=== PATIENT | male | born 1975 | race Caucasian/White ===

== ENCOUNTER → 2020-06-09 16:36 | Outpatient (CLI) | payer BC, SELFPAY ==
--- NOTE | ~2020-06-09 | XR_ITS ---
EXAMINATION: XR chest 2V DATE: 06/09/2020 16:49 INDICATION: Productive cough and weakness TECHNIQUE: PA and lateral views of the chest were obtained. COMPARISON: None FINDINGS: Indeterminate pleural-based opacity projecting along the lateral left lower lung zone. Lungs are othe rwise clear. No other airspace opacities, pulmonary edema, pleural effusion or pneumothorax. The card iomediastinal silhouette is normal. Visualized bones and soft tissues are unremarkable. IMPRESSION: 1. Indeterminate opacity suggesting pleural-based or subpleural mass at the lateral left lower lung z one. Consider chest CT for further evaluation. Reviewed, dictated and finalized at location A. IMPRESSION: 1. Indeterminate opacity suggesting pleural-based or subpleural mass at the lat eral left lower lung zone. Consider chest CT for further evaluation.
== END ==
PROVIDERS: PCP Clinical Nurse Specialist; Visit Provider Clinical Nurse Specialist
DX: R91.8 Other nonspecific abnormal finding of lung field (principal); R05 Cough
CPT/HCPCS: 71046

== ENCOUNTER 2020-06-11 16:51 | Outpatient (CLI) | payer BC, SELFPAY ==
--- NOTE | ~2020-06-11 | CT_ITS ---
EXAMINATION: CT chest wo con DATE: 06/11/2020 17:55 INDICATION: Lung mass seen on recent chest x-ray. TECHNIQUE: Computed tomography (CT) of the chest was performed without intravenous contrast. The dose -length product was 384.40 mGy-cm. Automated exposure control and iterative reconstruction technique were employed. COMPARISON: Chest x-ray dated 06/09/2020 FINDINGS: There is focal extrapleural fat in the left lower thorax accounting for density seen on margot st x-ray. Heart size normal. No significant pleural or pericardial effusion. No thoracic lymphadenopa thy. There are nonenlarged mediastinal lymph nodes, likely reactive. There is atherosclerosis of the coronary arteries. The upper abdomen is unremarkable. There are small calcified granulomas in the lef t lower lobe, consistent with chronic granulomatous disease.. No acute osseous abnormality. IMPRESSION: 1. No acute cardiopulmonary disease. Focal extrapleural fat accounts for nodular density seen on rece nt chest x-ray. Reviewed, dictated and finalized at location A. IMPRESSION: 1. No acute cardiopulmonary disease. Focal extrapleural fat accounts for nodula r density seen on recent chest x-ray.
== END 2020-06-11 16:52 | disposition home or self-care (01) ==
PROVIDERS: PCP Internal Medicine; Visit Provider Clinical Nurse Specialist
DX: R05 Cough (principal); R93.89 Abnormal findings on diagnostic imaging of other specified body structures
CPT/HCPCS: 71250

== ENCOUNTER 2021-12-05 00:45 | Day surgery (SDC) | payer BC, SELFPAY ==
[2021-11-24 12:06] VITALS: BMI 30.7
--- NOTE | 2021-12-04 16:30 | WPDGICN ---
Assessment and Plan Assessment and plan (1) Screening for colon cancer: Code(s): Z12.11 - Encounter for screening for malignant neoplasm of colon Status: Acute Assessment and Plan: Colonoscopy with possible biopsy or polypectomy or cautery or injection of substances. (2) Rheumatoid arthritis: Code(s): M06.9 - Rheumatoid arthritis, unspecified Status: Acute GI Consult Note Consult date/time: 12/04/21 16:30 HPI: Crow Herman Jr. is a 45 year old male referred because he is at recommended age for colon cancer screening. He also suffers from seasonal aergies and RA--on MTX and hydroxychloroquine. Review of Systems Review of Systems: All systems reviewed & are unremarkable except as noted in HPI and below PMFSH Past Medical History Medical History Need for influenza vaccination Rheumatoid arthritis Surgical History Surgical History History of rhinoplasty 1994 Family History Family History Father Hypertension Status post double vessel coronary artery bypass Dementia Mother Rheumatoid arthritis Parkinsons disease Sibling Hypothyroidism Systemic lupus erythematosus Social History Social History Smoking status: Current some day smoker Tobacco type: pipe and cigars Alcohol intake: current Drinks per week: 7 Substance use: current Substance use type: marijuana Other substance usage details: edibles Living arrangements: with family Spiritual care concerns: No Meds Home Medications and Allergies Home Medications Medication Instructions Recorded Confirmed Type cholecalciferol (vitamin D3) 25 25 mcg PO DAILY 04/28/20 11/24/21 History mcg (1,000 unit) capsule fluticasone propionate 50 2 spray NASAL DAILY 04/28/20 11/24/21 History mcg/actuation nasal spray,suspension folic acid 1 mg tablet 1 mg PO DAILY 04/28/20 11/24/21 History hydroxychloroquine 200 mg tablet 200 mg PO DAILY 04/28/20 11/24/21 History methotrexate sodium 15 mg tablet 15 mg PO WEEKLY 04/28/20 11/24/21 History multivitamin with minerals 1 tablet PO DAILY 04/28/20 11/24/21 History montelukast 10 mg tablet 10 mg PO DAILY #90 tablet 02/15/21 11/24/21 Rx albuterol sulfate 90 mcg/actuation 2 puff INHALATION Q4-6H PRN #8.5 g 05/04/21 11/24/21 Rx aerosol inhaler mupirocin 1 applic TOPICAL BID PRN 11/24/21 11/24/21 History Allergies Allergy/AdvReac Type Severity Reaction Status Date / Time latex Allergy Rash Verified 12/05/21 10:18 Exam Resp: Auscultation: clear to auscultation bilaterally Cardio: Rate: regular rate Rhythm: regular rhythm GI: GI Palp: Yes Soft to palpation and No Tenderness to palpation present (GI)
[2021-12-05 10:20] VITALS: BP 96/76; PULSE 95; RESP 15; TEMP 36.2; O2SAT 98
[2021-12-05] MEDS: LACTATED RINGERS 1,000 ML 150 ML IV CONT (10:30)
--- NOTE | 2021-12-05 10:54 | WPDANESEPPF ---
Anes - Initial Pre Proc Eval Procedure: Operation Date: 12/05/21 11:30 Proposed Procedures p Screening Colonoscopy - Tanner Angelo MD Date/Time: 12/05/21 10:54 Surgeon: Tanner Angelo MD Pre Op Diagnosis: neoplasm screening Patient Data Age: 45 Gender: M Height: 1.8 m Weight: 99.4 kg Last Vital Signs Temp 97.1 F L 12/05/21 10:20 Pulse 95 12/05/21 10:20 Resp 15 12/05/21 10:20 BP 96/76 L 12/05/21 10:20 Pulse Ox 98 12/05/21 10:20 Allergies Allergy/AdvReac Type Severity Reaction Status Date / Time latex Allergy Rash Verified 12/05/21 10:18 Home Medications Medication Instructions Recorded Confirmed Type cholecalciferol (vitamin D3) 25 25 mcg PO DAILY 04/28/20 11/24/21 History mcg (1,000 unit) capsule fluticasone propionate 50 2 spray NASAL DAILY 04/28/20 11/24/21 History mcg/actuation nasal spray,suspension folic acid 1 mg tablet 1 mg PO DAILY 04/28/20 11/24/21 History hydroxychloroquine 200 mg tablet 200 mg PO DAILY 04/28/20 11/24/21 History methotrexate sodium 15 mg tablet 15 mg PO WEEKLY 04/28/20 11/24/21 History multivitamin with minerals 1 tablet PO DAILY 04/28/20 11/24/21 History montelukast 10 mg tablet 10 mg PO DAILY #90 tablet 02/15/21 11/24/21 Rx albuterol sulfate 90 mcg/actuation 2 puff INHALATION Q4-6H PRN #8.5 g 05/04/21 11/24/21 Rx aerosol inhaler mupirocin 1 applic TOPICAL BID PRN 11/24/21 11/24/21 History Patient hx anesthesia problems: none Family hx anesthesia problems: none Results Review: All pre-operative results and documents have been reviewed as part of the pre-operative evaluation. [facility] Past Medical History Medical History Need for influenza vaccination Rheumatoid arthritis Surgical History Surgical History History of rhinoplasty 1995 Family History Family History Father Hypertension Status post double vessel coronary artery bypass Dementia Mother Rheumatoid arthritis Parkinsons disease Sibling Hypothyroidism Systemic lupus erythematosus Social History Social History Smoking status: Current some day smoker Tobacco type: pipe and cigars Alcohol intake: current Drinks per week: 7 Substance use: current Substance use type: marijuana Other substance usage details: edibles Living arrangements: with family Spiritual care concerns: No Anes - Eval Final PreProcedure Day of Procedure 12/05/21 10:54 Patient weight: obese Heart: regular rate and rhythm Lungs: clear to auscultation Airway: Mallampati scale class III Neurological: alert and oriented Last oral intake: >/= 8 hours ASA classification: II Emergent: no Anesthetic plan: proceed Anesthesia type and monitoring: general GIVS and standard monitoring Results Review: All pre-operative results and documents have been reviewed as part of the pre-operative evaluation. Informed Consent: The patient's anesthetic plan and its attendant risks and benefits were discussed with the patient/family/POA. Questions were solicited and answers provided to the satisfaction of the patient/family/POA.
[2021-12-05 11:37] VITALS: BP 122/81; PULSE 75; RESP 17; O2SAT 98
[2021-12-05 11:47] VITALS: BP 138/84; PULSE 74; RESP 23; O2SAT 100
[2021-12-05 11:57] VITALS: BP 133/89; PULSE 68; RESP 20; O2SAT 100
== END 2021-12-05 12:07 | disposition home or self-care (01) ==
PROVIDERS: PCP Internal Medicine; Visit Provider Internal Medicine Gastroenterology
PROC: 0DJD8ZZ Inspection of Lower Intestinal Tract, Via Natural or Artificial Opening Endoscopic (ICD-10-PCS; CPT 45378; principal; 2021-12-05 11:30)
DX: Z12.11 Encounter for screening for malignant neoplasm of colon (principal); Z79.51 Long term (current) use of inhaled steroids; M06.9 Rheumatoid arthritis, unspecified; F17.290 Nicotine dependence, other tobacco product, uncomplicated; F12.90 Cannabis use, unspecified, uncomplicated; E66.9 Obesity, unspecified; Z68.30 Body mass index [BMI] 30.0-30.9, adult
CPT/HCPCS: 45378; J2704; J7120

== ENCOUNTER 2021-12-30 10:29 | Emergency (ER) | payer BC, SELFPAY ==
[2021-12-30 11:26] VITALS: BP 145/85; PULSE 94; RESP 18; TEMP 37.2; O2SAT 99
--- NOTE | 2021-12-30 11:51 | ED.URI ---
HPI - URI/Sore Throat General Chief Complaint: Upper Respiratory Infection Stated Complaint: fever,bodyache,chills Time Seen by Provider: 12/30/21 11:51 Source: patient, family, RN notes reviewed and old records reviewed Mode of arrival: ambulatory Limitations: no limitations History of Present Illness HPI Narrative: 46-year-old male presents to the [facility] with complaints of fever, body aches and chills for 4 days. Patient states that symptoms started on Sunday. Had body aches and reports a fever of 100.7 on Sunday. On Sunday he also took a home COVID test which was negative. Has had intermittent cough last night states he had shortness of breath last night. States that what bothers him most is the chills and he is just cold to his bones. NyQuil. Uses Flonase daily along with the Singulair. Related Data Home Medications Medication Instructions Recorded Confirmed fluticasone propionate 50 2 spray NASAL DAILY 04/28/20 12/30/21 mcg/actuation nasal spray,suspension folic acid 1 mg tablet 1 mg PO DAILY 04/28/20 12/30/21 hydroxychloroquine 200 mg tablet 200 mg PO DAILY 04/28/20 12/30/21 methotrexate sodium 15 mg tablet 15 mg PO WEEKLY 04/28/20 12/30/21 Allergies Allergy/AdvReac Type Severity Reaction Status Date / Time latex Allergy Rash Verified 12/05/21 10:18 tree nut Allergy Unknown Verified 12/30/21 11:41 Review of Systems Review of Systems: All systems reviewed & are unremarkable except as noted in HPI and below Constitutional: Constitutional: Reports as per HPI, Reports chills, Reports fatigue, Reports fever(s) and Denies headache(s) Eyes: Eyes: Reports no additional eye complaints ENT: Reports as per HPI, Denies vertigo, Denies dizziness, Denies headache(s), Denies nasal congestion and Denies sore throat Cardiovascular: Cardiovascular: Reports no additional cardiovascular complaints, Denies chest pain, Denies syncope, Denies rapid heart rate and Denies dyspnea Respiratory: Respiratory: Reports as per HPI, Reports cough, Denies dyspnea and Denies wheezing Gastrointestinal: Gastrointestinal: Reports no additional gastrointestinal complaints, Denies abdominal pain, Denies diarrhea, Denies nausea and Denies vomiting Musculoskeletal: Musculoskeletal: Reports as per HPI, Reports myalgias and Denies numbness Integumentary/Breasts: Skin/Breast: Reports system reviewed and no additional complaints, except as docu Neurologic: Reports system reviewed and no additional complaints, except as documented, Denies vertigo, Denies dizziness, Denies syncope, Denies headache(s), Denies focal weakness and Denies numbness Psychiatric: Psychiatric: Reports no additional psychiatric complaints Allergic/Immunologic: Allergic/Immunologic: Reports no additional allergic/immunologic complaints and Denies wheezing PMFSH Past Medical History Medical History Need for influenza vaccination Rheumatoid arthritis Surgical History Surgical History History of rhinoplasty 1994 Family History Family History Father Hypertension Status post double vessel coronary artery bypass Dementia Mother Rheumatoid arthritis Parkinsons disease Sibling Hypothyroidism Systemic lupus erythematosus Social History Social History Smoking status: Current some day smoker Tobacco type: pipe and cigars Alcohol intake: current Drinks per week: 7 Substance use: current Substance use type: marijuana Other substance usage details: edibles Spiritual care concerns: No Comments At the time of my signature, I reviewed and agree with the nursing past medical, surgical, social, and family history. There is no relevant family history pertinent to the patient complaint. Exam Const: General: cooperative, hea
[2021-12-31 08:59] LABS: SARS-CoV-2 RNA PCR Negative
== END 2021-12-30 12:11 | disposition home or self-care (01) ==
PROVIDERS: Emergency Provider Nurse Practitioner; PCP Internal Medicine
DX: B34.9 Viral infection, unspecified (principal); Z20.822 Contact with and (suspected) exposure to COVID-19; F17.290 Nicotine dependence, other tobacco product, uncomplicated; M06.9 Rheumatoid arthritis, unspecified
CPT/HCPCS: 87804; 99213; C9803; G0463; U0003; U0005

== ENCOUNTER 2022-07-01 14:34 | Emergency (ER) | payer BC, SELFPAY ==
[2022-07-01 14:53] VITALS: BP 113/77; PULSE 81; RESP 18; TEMP 36.9; O2SAT 98
--- NOTE | 2022-07-01 14:56 | ED.GENADULT ---
HPI - General Adult General Chief complaint: Wound/Laceration Stated complaint: laceration History of Present Illness HPI narrative: 46 y/o male. PMHx Seasonal allergies, RA. Presents to [facility] clinic today with acute complaints of LT pointer finger tip laceration. Client reports to have been trimming hedges, RT hand dominant, and window trimmer accidentally made contact w/left finger. -Incident had occurred immediately [employer]. -No bony pain or injury. -Bleeding currently controlled. -Not on anticoagulants. -Non-diabetic. -No loss of upper extremity sensation or control. He is without additional acute c/o upon PE. Related Data Home Medications Medication Instructions Recorded Confirmed fluticasone propionate 50 2 spray intranasal DAILY 04/28/20 07/01/22 mcg/actuation nasal spray,suspension (Flonase Allergy Relief) folic acid 1 mg tablet 1 mg PO DAILY 04/28/20 07/01/22 hydroxychloroquine 200 mg tablet 200 mg PO DAILY 04/28/20 07/01/22 methotrexate sodium 15 mg tablet 15 mg PO WEEKLY 04/28/20 07/01/22 (Trexall) Allergies Allergy/AdvReac Type Severity Reaction Status Date / Time latex Allergy Rash Verified 07/01/22 15:01 tree nut Allergy Unknown Verified 07/01/22 15:01 Review of Systems Review of Systems: SKIN: Laceration LT finger. REMAINDER OF ROS: NEGATIVE. PMFSH Past Medical History Medical History Need for influenza vaccination Rheumatoid arthritis Surgical History Surgical History History of rhinoplasty 1994 Family History Family History Father Hypertension Status post double vessel coronary artery bypass Dementia Mother Rheumatoid arthritis Parkinsons disease Sibling Hypothyroidism Systemic lupus erythematosus Social History Social History Smoking status: Current some day smoker Tobacco type: pipe and cigars Alcohol intake: current Drinks per week: 7 Substance use: current Substance use type: marijuana Other substance usage details: edibles Spiritual care concerns: No Exam Narrative: GENERAL: This is a well-nourished, well-developed adult, in no apparent distress. HEAD: normocephalic. NECK: Neck supple. CARDIOVASCULAR: Regular rate and rhythm. Strong radial pulse LUE, cap refill brisk, SPO2 99% on affected digit. RESPIRATORY: Clear to auscultation. GASTROINTESTINAL: Abdomen soft. SKIN: With 2 cm soft tissue and linear laceration overlying distal fat pad of left pointer digit. Bleeding is controlled. No visualized FB. Remainder of integumentary exam is negative. NEURO: Alert, and age appropriate. Good sensation and discrimination LUE, all sites. No focal neurologic deficits. EXTREMITIES: Client exhibits full flexion and extension of left pointer finger, no restriction. No bony tenderness or deformity. ROM is fully preserved. Course Course Level of Care: Express Care Visit Vital Signs Vital signs: Vital Signs Temperature 36.9 C 07/01/22 14:53 Pulse Rate 81 07/01/22 14:53 Respiratory Rate 18 07/01/22 14:53 Blood Pressure 113/77 07/01/22 14:53 Pulse Oximetry 98 07/01/22 14:53 Oxygen Delivery Room Air 07/01/22 14:53 Temperature 36.9 C 07/01/22 14:53 Pulse Rate 81 07/01/22 14:53 Respiratory Rate 18 07/01/22 14:53 Blood Pressure 113/77 07/01/22 14:53 Pulse Oximetry 98 07/01/22 14:53 Oxygen Delivery Room Air 07/01/22 14:53 Procedures Laceration Laceration 1: Date: 07/01/22 Time: 15:01 Site: upper extremity (LT pointer finger . ) Side (If applicable): left Size (cm): 2 Description: linear Depth: simple, single layer Local Anesthetic: lidocaine 1% Amount of anesthesia used (mL): 0.5 Pre-r
[2022-07-01] MEDS: TETANUS,DIPHTHERIA,AC PERTUSSIS ADULT (0.5 ML) BOOSTRIX IM (15:48)
== END 2022-07-01 15:52 | disposition home or self-care (01) ==
PROVIDERS: Emergency Provider Nurse Practitioner Adult Health; PCP Internal Medicine
DX: S61.211A Laceration without foreign body of left index finger without damage to nail, initial encounter (principal); W29.3XXA Contact with powered garden and outdoor hand tools and machinery, initial encounter; Z23 Encounter for immunization; F17.290 Nicotine dependence, other tobacco product, uncomplicated; M06.9 Rheumatoid arthritis, unspecified
CPT/HCPCS: 12001; 90471; 90715; 99212; G0463

== ENCOUNTER 2023-02-21 11:01 | Outpatient (CLI) | payer BC, SELFPAY ==
[2023-02-21 11:22] LABS: Basophils Absolute Auto 0.1 K/mm3 (0.0-0.1); Eosinophils Absolute Auto 0.1 K/mm3 (0-0.3); Eosinophils Percent Auto 1.6 % (0-4.4); Hematocrit 38.1 % (42.0-52.0); Hemoglobin 12.6 g/dL (14.0-18.0); Lymphocytes Absolute Auto 0.93 K/mm3 (0.9-3.2); Lymphocytes Percent Auto 18.9 % (18.3-44.2); Mean Corpuscular HGB Conc 33.1 g/dl (32-36); Mean Corpuscular Hemoglobin 30.9 pg (26-34); Mean Corpuscular Volume 93.4 fl (80-100); Mean Platelet Volume 9.5 fl (7.4-10.4); Neutrophils Absolute Auto 2.9 K/mm3 (1.3-6.7); Neutrophils Percent Auto 58.5 % (45.5-73.1); Platelet Count Result 253 k/mm3 (150-375); Red Blood Count 4.08 M/mm3 (4.6-6.20); Red Cell Distribution Width 14.6 % (11.5-14.5); White Blood Count 4.9 K/mm3 (4.5-10.0)
[2023-02-21 11:27] LABS: Uric Acid 8.4 mg/dL (3.5-8.5)
[2023-02-21 12:43] LABS: Erythrocyte Sedimentation Rate 25 mm/hr (0-20)
== END 2023-02-21 11:02 | disposition home or self-care (01) ==
PROVIDERS: PCP Internal Medicine; Visit Provider Nurse Practitioner
DX: M25.571 Pain in right ankle and joints of right foot (principal)
CPT/HCPCS: 36415; 73610; 84550; 85025; 85652

== ENCOUNTER 2023-12-10 14:18 | Outpatient (CLI) | payer OTHER, SELFPAY ==
[2023-12-10 14:42] LABS: Eosinophils Absolute Auto 0.1 K/mm3 (0-0.3); Eosinophils Percent Auto 3.4 % (0-4.4); Hematocrit 33.9 % (42.0-52.0); Hemoglobin 11.6 g/dL (14.0-18.0); Immature Granulocyte Absolute 0.01 K/mm3 (0.00-0.031); Immature Granulocyte Percent A 0.2 % (0-0.5); Immature Reticulocyte Fraction 11.9 % (3.0-15.9); Lymphocytes Absolute Auto 0.87 K/mm3 (0.9-3.2); Mean Corpuscular HGB Conc 34.2 g/dl (32-36); Mean Corpuscular Hemoglobin 31.9 pg (26-34); Mean Corpuscular Volume 93.1 fl (80-100); Mean Platelet Volume 9.1 fl (7.4-10.4); Monocytes Absolute Auto 0.5 K/mm3 (0.1-0.6); Monocytes Percent Auto 12.8 % (2.6-8.5); Neutrophils Absolute Auto 2.6 K/mm3 (1.3-6.7); Neutrophils Percent Auto 61.6 % (45.5-73.1); Platelet Count Result 214 k/mm3 (150-375); Red Blood Count 3.64 M/mm3 (4.6-6.20); Reticulocyte Hemoglobin Conten 34.3 pg (28.2-35.7); Reticulocyte Percent 1.59 % (0.7-4.3); Reticulocytes Absolute 0.06 M/mm3 (0.02-0.1); White Blood Count 4.1 K/mm3 (4.5-10.0)
[2023-12-10 17:36] LABS: Iron 60 ug/dL (49-181)
[2023-12-10 17:43] LABS: Alanine Aminotransferase 24 U/L (6-50); Albumin Level 4.2 g/dL (3.5-5.1); Alkaline Phosphatase 71 U/L (38-126); Anion Gap 8 mmol/L (8-16); Aspartate Amino Transferase 37 U/L (17-59); Bilirubin,Total 0.4 mg/dL (0.2-1.3); Blood Urea Nitrogen 11 mg/dL (9-20); Calcium 9.4 mg/dL (8.4-10.2); Carbon Dioxide 27 mmol/L (22-30); Chloride 103 mmol/L (98-107); Estimated Glomerular Filt Rate > 60; Glucose 102 mg/dL (65-110); Lactate Dehydrogenase 240 U/L (120-246); Sodium 138 mmol/L (137-145)
[2023-12-10 17:46] LABS: Percent Iron Saturation 21 % (20-50)
[2023-12-12 16:35] LABS: Methylmalonic Acid 139 nmol/L (87-318)
[2023-12-13 19:59] LABS: Haptoglobin 157 mg/dL (43-212)
[2023-12-17 12:42] LABS: Soluble Transferrin Receptor 1.07 mg/L (0.76-1.76)
== END 2023-12-10 14:19 | disposition home or self-care (01) ==
LOC: ANHLAB 14:24
PROVIDERS: Nurse Practitioner Family; PCP Internal Medicine; Visit Provider Internal Medicine Hematology & Oncology
DX: D64.9 Anemia, unspecified (principal)
CPT/HCPCS: 36415; 80053; 82728; 83010; 83540; 83550; 83615; 83921; 84238; 85025; 85046

== ENCOUNTER 2024-05-20 08:39 | Outpatient (CLI) | payer OTHER, SELFPAY ==
[2024-05-20 08:54] LABS: Basophils Absolute Auto 0.1 K/mm3 (0.0-0.1); Eosinophils Absolute Auto 0.1 K/mm3 (0-0.3); Eosinophils Percent Auto 2.5 % (0-4.4); Hematocrit 37.2 % (42.0-52.0); Hemoglobin 12.4 g/dL (14.0-18.0); Immature Granulocyte Absolute 0.02 K/mm3 (0.00-0.031); Immature Granulocyte Percent A 0.4 % (0-0.5); Lymphocytes Absolute Auto 0.75 K/mm3 (0.9-3.2); Lymphocytes Percent Auto 14.6 % (18.3-44.2); Mean Corpuscular HGB Conc 33.3 g/dl (32-36); Mean Corpuscular Hemoglobin 31.4 pg (26-34); Mean Corpuscular Volume 94.2 fl (80-100); Monocytes Absolute Auto 0.6 K/mm3 (0.1-0.6); Monocytes Percent Auto 12.3 % (2.6-8.5); Neutrophils Absolute Auto 3.5 K/mm3 (1.3-6.7); Neutrophils Percent Auto 69.2 % (45.5-73.1); Platelet Count Result 242 k/mm3 (150-375); Red Blood Count 3.95 M/mm3 (4.6-6.20); Red Cell Distribution Width 13.6 % (11.5-14.5); White Blood Count 5.1 K/mm3 (4.5-10.0)
[2024-05-20 11:41] LABS: Folic Acid > 20.0 ng/mL (2.76->20)
[2024-05-20 12:54] LABS: Iron 96 ug/dL (49-181)
[2024-05-20 13:03] LABS: Percent Iron Saturation 31 % (20-50)
== END 2024-05-20 08:40 | disposition home or self-care (01) ==
LOC: ANHLAB 08:41
PROVIDERS: Nurse Practitioner Family; PCP Internal Medicine; Visit Provider Internal Medicine Hematology & Oncology
DX: D64.9 Anemia, unspecified (principal)
CPT/HCPCS: 36415; 82607; 82728; 82746; 83540; 83550; 85025

== ENCOUNTER 2024-11-21 13:38 | Outpatient (CLI) | payer OTHER, SELFPAY ==
--- OUTSIDE RECORDS SUMMARY | 2024-11-21 13:41 | XMS_ITS | Referral Summary ---
Author Organization [facility] [employer] Address [address] [place] [address] Care Team Providers Care It Telecom Technician Name Role Phone Anthony Mora MD Primary Care Provider [phone] Nell Quiroz MD Unavailable Unavailable Source Comments [facility] [employer],non-owned Affiliates and Associated Physician Practices is amultiple site organization consisting of ambulatory clinics and hospital sitesin [place], [place], [place] and [place]. This disclosure is being madepursuant to the Care Everywhere program and may not contain all information available regarding this patient. Last updated 18.[facility] [employer] Allergies Active Allergy Reactions Criticality Noted Date Comments Latex 09/18/2009 Medications * Be aware that medications may not be up to date on this document. Alwaysverify current medications with the patient. Medication Sig Dispensed Refills Start Date End Date Status methotrexate (RHEUMATREX) 2.5 MG tablet Take 2.5 mg by mouth. 4 tabs weekly Active hydroxychloroquine (PLAQUENIL) 200 MG tabletIndications: Rheumatoid arthritis(714.0) (HCC) Take 1 Tab by mouth once daily. 90 Tab 3 12/01/2011 Active folic acid (FOLVITE) 1 MG tabletIndications: Bronchitis, acute Take 1 mg by mouth 2 times daily. Active albuterol HFA (PROAIR HFA) 108 (90 BASE) MCG/ACT inhalerIndications :Asthma (HCC) Inhale 2 Puffs by mouth every 6 hours as needed. 3 Inhaler 1 12/10/2014 Active predniSONE (DELTASONE) 10 MG tabletIndications: Achilles tendonitis, right 4 tabs daily for 2 days the 3 tabs daily for 4 days then 2 tabs daily for 4 days then 1 tab daily for 4 days 32 Tab 0 02/04/2015 Active fluticasone propionate (FLONASE) 50 MCG/ACT nasal spray USE 1 SPRAY IN EACH NOSTRILTWICE DAILY. APPOINTMENT DUE 05/2014. PLEASE CALL TO SCHEDULE. 48 g 2 04/26/2015 Active montelukast (SINGULAIR) 10 MG tablet TAKE 1 TABLET AT BEDTIME. APPOINTMENT DUE 05/2014. NEED TO SCHEDULE FOR FURTHER REFILLS. 90 Tab 3 04/26/2015 Active Active Problems Problem Noted Date Diagnosed Date Rheumatoid arthritis 12/14/2010 Overview (08/22/2015): Asthma 09/18/2009 Allergic rhinitis 09/18/2009 Pure hypercholesterolemia 09/18/2009 Immunizations Name Administration Dates Next Due DTaP VACCINE IM (6wk-6yrs) 10/15/2005 Social History Tobacco Use Types Packs/Day Years Used Date Smoking Tobacco: Never Alcohol Use Standard Drinks/Week Comments Yes 0 (1 standard drink = 0.6 oz pur e alcohol) Sex and Gender Information Value Date Recorded Sex Assigned at Not on file Gender Identity Not on file Sexual Orientation Not on file Last Filed Vital Signs Vital Sign Reading Time Taken Comments Blood Pressure 100/60 02/04/2015 2:55 PM CDT Pulse 81 01/26/2015 3:38 PM CDT Temperature - - Respiratory Rate 16 01/26/2015 3:38 PM CDT Oxygen Saturation 98% 01/26/2015 3:38 PM CDT Inhaled Oxygen Concentration - - Weight 98.4 kg (217 lb) 02/04/2015 2:55 PM CDT Height 180.3 cm (5' 11 ) 02/04/2015 2:55 PM CDT Body Mass Index 30.27 02/04/2015 2:55 PM CDT Plan of Treatment Not on file Goals Goal Patient Goal Type Associated Problems Recent Progress Patient-Stated? Author Weight < 90.719 kg (200 lb) Weight 98.4 kg (217 lb)( 5 2:55 PM CDT) No Sharon Farnsworth MA Note: Try to lower your weight to below 200 pounds before your next visit Procedures Procedure Name Priority Date/Time Associated Diagnosis Comments LIPID PROFILE W LDL/HDL RATIO Routine 12/10/2014 10:12 AM PROMOTIONS EXECUTIVE Annual physical exam HIV 1/0/2 ANTIBODIES W CONFIRM Routine 12/27/2009 8:16 AM CDT Myalgia and Myositis from Last 3 Months or Most Recently Relevant to Health Maintenance Results * LIPID PROFILE W LDL/HDL (PO REF LAB) (12/10/2014 10:12 AM PROMOTIONS EXECUTIVE) Cholesterol 151 100 - 199 mg/dL [facility] ACCOUNT BILL Triglycerides 78 0 - 149 mg/dL [facility] ACCOUNT BILL HDL Cholesterol 45 >39 mg/dL [facility] ACCOUNT BILL Comment: According to ATP-III Guidelines, HDL-C >59 mg/dL is considered a negative risk factor for CHD. VLDL Calculated 16 5 - 40 mg/dL [facility] ACCOUNT BILL LDL Calculated 90 0 - 99 mg/dL [facility] ACCOUNT BILL Comment NOT NEEDED [facility] ACCOUNT BILL Comment:Ancillary determined the test is not needed LDL/HDL Ratio 2.0 0.0 - 3.6 ratio units [facility] ACCOUNT BILL Comment: LDL/HDL Ratio Men Women 1/2 Avg.Risk 1.0 1.5 Avg.Risk 3.6 3.2 2X Avg.Risk 6.2 5.0 3X Avg.Risk 8.0 6.1 Blood specimen (specimen) BLOOD SPECIMEN / Unknown 12/10/2014 10:12 AM PROMOTIONS EXECUTIVE 12/10/2014 12:55 PM PROMOTIONS EXECUTIVE Narrative Resulting Agency Comment [facility] [address] [id number] Anthony Mora MD LAB - CHEMISTRY O RDERABLES [facility] ACCOUNT BILL * HIV 1/0/2 ANTIBODIES W CONFIRM (PO REF LAB) (12/27/2009 8:16 AM CDT) HIV-1 Antibody O.D. Ratio <1.00 <1.00 [facility] ACCOUNT BILL Comment:Index Value: Specime n reactivity relative to the negative cutoff. HIV-1/HIV-2 Non Reactive Non Reactive [facility] ACCOUNT BILL BLOOD SPECIMEN / Unknown 12/27/2009 8:16 AM CDT 12/27/2009 5:32 PM CDT Narrative Resulting Agency Comment [facility] [address] [id number] Anthony Mora MD LAB - MICROBIOLOG Y ORDERABLES [facility] ACCOUNT BILL from Last 3 Months or Most Recently Relevant to Health Maintenance Care Teams It Telecom Technician Relationship Specialty Start Date End Date Anthony Mora MD [address] [id number] PCP - General 09/18/09 Nell Quiroz MD [address] [id number] Rheumatology 12/11/13
--- OUTSIDE RECORDS SUMMARY | 2024-11-21 13:41 | XMS_ITS | Patient Health Summary ---
Author Organization [facility] [employer] Address [address] [place] [address] Care Team Providers Care Mergers And Acquisitions Associate Name Role Phone Anthony Mora MD Primary Care Provider [phone] Nell Quiroz MD Unavailable Unavailable Note from [facility],non-owned Affiliates and Associated Physician Practices is amultiple site organization consisting of ambulatory clinics and hospital sitesin [place], [place], [place] and [place]. This disclosure is being madepursuant to the Care Everywhere program and may not contain all information available regarding this patient. Last updated 18.[facility] Allergies * Latex Medications * Be aware that medications may not be up to date on this document. Alwaysverify current medications with the patient. * methotrexate (RHEUMATREX) 2.5 MG tablet Take 2.5 mg by mouth. 4 tabs weekly * hydroxychloroquine (PLAQUENIL) 200 MG tablet(Started 12/01/2011) Take 1 Tab by mouth once daily. 3 refills left * folic acid (FOLVITE) 1 MG tablet Take 1 mg by mouth 2 times daily. * albuterol HFA (PROAIR HFA) 108 (90 BASE) MCG/ACT inhaler(Started 12/10/2014) Inhale 2 Puffs by mouth every 6 hours as needed. 1 refill left * predniSONE (DELTASONE) 10 MG tablet(Started 02/04/2015) 4 tabs daily for 2 days the 3 tabs daily for 4 days then 2 tabs daily for 4 days then 1 tab daily for 4 days * fluticasone propionate (FLONASE) 50 MCG/ACT nasal spray(Started 04/26/2015) USE 1 SPRAY IN EACH NOSTRILTWICE DAILY. APPOINTMENT DUE 05/2014. PLEASE CALL TO SCHEDULE. 2 refills left * montelukast (SINGULAIR) 10 MG tablet(Started 04/26/2015) TAKE 1 TABLET AT BEDTIME. APPOINTMENT DUE 05/2014. NEED TO SCHEDULE FOR FURTHER REFILLS. 3 refills left Active Problems Problem Noted Date Diagnosed Date Rheumatoid arthritis 12/14/2010 Asthma 09/18/2009 Allergic rhinitis 09/18/2009 Pure hypercholesterolemia 09/18/2009 Immunizations * DTaP VACCINE IM (6wk-6yrs)(Given 10/15/2005) Social History Tobacco Use Types Packs/Day Years [...] Mass Index 30.27 02/04/2015 2:55 PM CDT Procedures * LIPID PROFILE W LDL/HDL RATIO(Performed 12/10/2014) Performed for Annual physical exam * THYROID PANEL W TSH (TSH,T4,T3 UPTAKE,FTI)(Performed 12/10/2014) Performed for Annual physical exam * COMPREHENSIVE METABOLIC PANEL(Performed 12/10/2014) Performed for Annual physical exam * CBC W AUTO DIFFERENTIAL(Performed 12/10/2014) Performed for Annual physical exam * LIPID PROFILE W LDL/HDL RATIO(Performed 12/11/2013) Performed for Pure Hypercholesterolemia * THYROID PANEL W TSH (TSH,T4,T3 UPTAKE,FTI)(Performed 12/11/2013) Performed for Annual physical exam * COMPREHENSIVE METABOLIC PANEL(Performed 12/11/2013) Performed for Annual physical exam * CBC W AUTO DIFFERENTIAL(Performed 12/11/2013) Performed for Annual physical exam * VITAMIN D 25-HYDROXY(Performed 04/04/2013) Performed for Annual physical exam * LIPID PROFILE(Performed 04/04/2013) Performed for Annual physical exam * THYROID PANEL W TSH (TSH,T4,T3 UPTAKE,FTI)(Performed 04/04/2013) Performed for Annual physical exam * COMPREHENSIVE METABOLIC PANEL(Performed 04/04/2013) Performed for Annual physical exam * CBC W AUTO DIFFERENTIAL(Performed 04/04/2013) Performed for Annual physical exam * LIPID PROFILE(Performed 12/01/2011) Performed for Pure hypercholesterolemia * THYROID PANEL W TSH (TSH,T4,T3 UPTAKE,FTI)(Performed 12/01/2011) Performed for Annual physical exam * COMPREHENSIVE METABOLIC PANEL(Performed 12/01/2011) Performed for Annual physical exam * CBC W AUTO DIFFERENTIAL(Performed 12/01/2011) Performed for Annual physical exam * C-REACTIVE PROTEIN SENSITIVE(Performed 01/17/2011) * ERYTHROCYTE SEDIMENTATION RATE(Performed 01/17/2011) * COMPREHENSIVE METABOLIC PANEL(Performed 01/17/2011) * CBC W AUTO DIFFERENTIAL(Performed 01/17/2011) * XR HAND BILAT 3VW OR MORE(Performed 01/17/2011) Performed for Rheumatoid arthritis (HCC) * XR WRIST BILAT 3VW OR MORE(Performed 01/17/2011) Performed for Rheumatoid arthritis (HCC) * MICROALBUMIN URINE RANDOM(Performed 12/20/2010) Performed for Rheumatoid arthritis ([facility]) * URINALYSIS NO MICROSCOPIC NO CULTURE(Performed 12/20/2010) Performed for Rheumatoid arthritis (HCC) * LIPID PROFILE(Performed 12/20/2010) Performed for Pure hypercholesterolemia * THYROID PANEL W TSH (TSH,T4,T3 UPTAKE,FTI)(Performed 12/20/2010) Performed for Annual physical exam * COMPREHENSIVE METABOLIC PANEL(Performed 12/20/2010) Performed for Annual physical exam * CBC W AUTO DIFFERENTIAL(Performed 12/20/2010) Performed for Rheumatoid arthritis (HCC) * URINALYSIS NO MICROSCOPIC NO CULTURE(Performed 12/27/2009) Performed for Myalgia and Myositis * HERPES SIMPLEX 1+2 ANTIBODY IGG(Performed 12/27/2009) Performed for Myalgia and Myositis * VALENTINO BLOOD SCREEN W/REFLEX TITER(Performed 12/27/2009) Performed for Myalgia and Myositis * HIV 1/0/2 ANTIBODIES W CONFIRM(Performed 12/27/2009) Performed for Myalgia and Myositis * ERYTHROCYTE SEDIMENTATION RATE(Performed 12/27/2009) Performed for Myalgia and Myositis * C-REACTIVE PROTEIN(Performed 12/27/2009) Performed for Myalgia and Myositis * RHEUMATOID FACTOR BLOOD QUANTITATIVE(Performed 12/27/2009) Performed for Myalgia and Myositis * LIPID PROFILE(Performed 12/27/2009) Performed for Annual Physical Exam * THYROID PANEL W TSH (TSH,T4,T3 UPTAKE,FTI)(Performed 12/27/2009) Performed for Annual Physical Exam * COMPREHENSIVE METABOLIC PANEL(Performed 12/27/2009) Performed for Annual Physical Exam * CBC W AUTO DIFFERENTIAL(Performed 12/27/2009) Performed for Annual Physical Exam Results * LIPID PROFILE W LDL/HDL (PO REF LAB) (12/10/2014 10:12 AM SERGEANT OF OFFIC[employer]) Only the most recent of2 resultswithin the time period is included. Cholesterol 151 100 - 199 mg/dL [facility] [...] BLOOD SPECIMEN / Unknown 12/10/2014 10:12 AM [employer]GEANT OF [employer] 12/10/2014 12:55 PM [employer] Narrative Resulting Agency Comment [facility] [address] [phone] Anthony Mora MD LAB - CHEMISTRY O RDERABLES [facility] ACCOUNT BILL * THYROID PANEL W TSH (12/10/2014 10:12 AM SERGEANT [employer]) Only the most recent of6 resultswithin the time period is included. Pathologist [facility] TSH 3.400 0.450 - 4.500 uIU/mL [facility] ACCOUNT BILL T4 Total 7.3 4.5 - 12.0 ug/dL [facility] ACCOUNT BILL T3 Uptake 28 24 - 39 % [facility] ACCOUNT BILL Free Thyroxine Index 2.0 1.2 - 4.9 [facility] ACCOUNT BILL Blood specimen (specimen) BLOOD SPECIMEN / Unknown 12/10/2014 10:12 AM SERGEANT OF [employer] 12/10/2014 12:55 PM [employer]GE[employer] Narrative Resulting Agency Comment [facility] [address] [phone] Anthony Mora MD LAB - CHEMISTRY O RDERABLES Performing Organization Address City/[facility]/ZIP Co de Phone Number [facility] ACCOUNT BILL * (ABNORMAL) CBC W AUTO DIFFERENTIAL (12/10/2014 10:12 AM SERGEANT OF OFFIC[employer]) Only the most recent of7 resultswithin the time period is included. Pathologist [facility] WBC 4.9 3.4 - 10.8 x10E3/uL [facility] ACCOUNT BILL RBC 4.15 4.14 - 5.80 x10E6/uL [facility] ACCOUNT BILL Hemoglobin 12.3(L) 12.6 - 17.7 g/dL [facility] ACCOUNT BILL Hematocrit 36.5(L) 37.5 - 51.0 % [facility] ACCOUNT BILL MCV 88 79 - 97 fL [facility] ACCOUNT BILL MCH 29.6 26.6 - 33.0 pg [facility] ACCOUNT BILL MCHC 33.7 31.5 - 35.7 g/dL [facility] ACCOUNT BILL RDW 13.9 12.3 - 15.4 % [facility] ACCOUNT BILL Platelet Count 284 150 - 379 x10E3/uL [facility] ACCOUNT BILL Granulocytes % 64 % [facility] ACCOUNT BILL Lymphocytes % 22 % [facility] ACCOUNT BILL Monocytes % 11 % [facility] ACCOUNT BILL Eosinophils % 2 % [facility] ACCOUNT BILL Basophils % 1 % [facility] ACCOUNT BILL Immature Cells NOT NEEDED [facility] ACCOUNT BILL Comment:Ancillary determined the test is not needed Granulocytes Absolute 3.2 1.4 - 7.0 x10E3/uL [facility] ACCOUNT BILL Lymphocytes Absolute 1.1 0.7 - 3.1 x10E3/uL [facility] ACCOUNT BILL Monocytes Absolute 0.5 0.1 - 0.9 x10E3/uL [facility] ACCOUNT BILL Eosinophils Absolute 0.1 0.0 - 0.4 x10E3/uL [facility] ACCOUNT BILL Basophils Absolute 0.0 0.0 - 0.2 x10E3/uL [facility] ACCOUNT BILL Immature Granulocytes 0 % [facility] ACCOUNT BILL Immature Granulocytes Absolute 0.0 0.0 - 0.1 x10E3/uL [facility] ACCOUNT BILL nRBC NOT NEEDED [facility] ACCOUNT BILL Comment:Ancillary determined the test is not needed Comment Hematology NOT NEEDED [facility] ACCOUNT BILL Comment:Ancillary determined the test is not needed Blood specimen (specimen) BLOOD SPECIMEN / Unknown 12/10/2014 10:12 AM SERGEANT OF [employer] 12/10/2014 12:55 PM [employer] Narrative Resulting Agency Comment [facility] [address] [phone] Anthony Mora MD LAB - HEMATOLOGY ORDERABLES [facility] ACCOUNT BILL * COMPREHENSIVE METABOLIC PANEL (12/10/2014 10:12 AM [employer]GE[employer]) Only the most recent of7 resultswithin the time period is included. Glucose 88 65 - 99 mg/dL [facility] ACCOUNT BILL BUN 10 6 - 20 mg/dL [facility] ACCOUNT BILL Creatinine 1.01 0.76 - 1.27 mg/dL [facility] ACCOUNT BILL eGFR by MDRD 93 >59 mL/min/1.7 3 [facility] ACCOUNT BILL eGFR by MDRD 108 >59 mL/min/1.7 3 [facility] ACCOUNT BILL BUN/Creatinine Ratio 10 8 - 19 [facility] ACCOUNT BILL Sodium 139 134 - 144 mmol/L [facility] ACCOUNT BILL Potassium 4.3 3.5 - 5.2 mmol/L [facility] ACCOUNT BILL Chloride 100 97 - 108 mmol/L [facility] ACCOUNT BILL CO2 26 18 - 29 mmol/L [facility] ACCOUNT BILL Calcium 9.7 8.7 - 10.2 mg/dL [facility] ACCOUNT BILL Protein Total 7.4 6.0 - 8.5 g/dL [facility] ACCOUNT BILL Albumin 4.3 3.5 - 5.5 g/dL [facility] ACCOUNT BILL Globulin Total 3.1 1.5 - 4.5 g/dL [facility] ACCOUNT BILL Albumin/Globulin Ratio 1.4 1.1 - 2.5 [facility] ACCOUNT BILL Bilirubin Total 0.4 0.0 - 1.2 mg/dL [facility] ACCOUNT BILL Alkaline Phosphatase 83 39 - 117 IU/L [facility] ACCOUNT BILL AST 26 0 - 40 IU/L [facility] ACCOUNT BILL ALT 24 0 - 44 IU/L [facility] ACCOUNT BILL Blood specimen (specimen) BLOOD SPECIMEN / Unknown 12/10/2014 10:12 AM [employer]GE[employer] 12/10/2014 12:55 PM [employer] Narrative Resulting Agency Comment [facility] [address] [phone] Anthony Mora MD LAB - CHEMISTRY O RDERABLES [facility] ACCOUNT BILL * (ABNORMAL) VITAMIN D 25-HYDROXY (04/04/2013 10:55 AM CDT) Vitamin D, 25 Hydroxy 28.7(L) 30.0 - 100.0 ng/mL [facility] ACCOUNT BILL Comment: Vitamin D deficiency has been defined by the [place] of [employer] and an Endocrine Society practice guideline as a level of serum 25-OH vitamin D less than 20 ng/mL (1,2). The Endocrine Society went on to further define vitamin D insufficiency as a level between 21 and 29 ng/mL (2). 1. IOM ([place] of [employer]). 2010. Dietary reference intakes for calcium and D. [place]: The National Academies Press. 2. Jerman TONY, Sky ZIMMERMAN, Ronaldo MCCLURE, et al. Evaluation, treatment, and prevention of vitamin D deficiency: an Endocrine Society clinical practice guideline. JCEM. 2010; 96(7):1911-30. Blood specimen (specimen) BLOOD SPECIMEN / Unknown 04/04/2013 10:55 AM CDT 04/04/2013 2:43 PM CDT Narrative Resulting Agency Comment [facility] [address] [phone] Anthony Mora MD LAB - CHEMISTRY O OLIVER Performing Organization Address [facility]/ZIP Co de Phone Number [facility] ACCOUNT BILL * LIPID PROFILE (04/04/2013 10:55 AM CDT) Only the most recent of4 resultswithin the time period is included. Cholesterol 150 100 - 199 mg/dL [facility] ACCOUNT BILL Triglycerides 109 0 - 149 mg/dL [facility] ACCOUNT BILL HDL Cholesterol 43 >39 mg/dL [facility] ACCOUNT BILL Comment: According to ATP-III Guidelines, HDL-C >59 mg/dL is considered a negative risk factor for CHD. VLDL Calculated 22 5 - 40 mg/dL [facility] ACCOUNT BILL LDL Calculated 85 0 - 99 mg/dL [facility] ACCOUNT BILL Comment NOT NEEDED [facility] ACCOUNT BILL Comment:Ancillary determined the test is not needed Blood specimen (specimen) BLOOD SPECIMEN / Unknown 04/04/2013 10:55 AM CDT 04/04/2013 2:43 PM CDT Narrative Resulting Agency Comment [facility] [address] [phone] Anthony Mora MD LAB - CHEMISTRY Florentin BOYD Performing Organization Address [facility] Co de Phone Number [facility] ACCOUNT BILL * C-REACTIVE PROTEIN SENSITIVE (01/17/2011 4:25 PM CDT) C-Reactive Protein High Sensitivity 0.235 SEE BELOW mg/dl [facility] Comment: <=0.3 Healthy CARDIO DISEASE PREDICTION <0.1 Low Risk >0.1 and <0.3 Average Risk >0.3 High Risk BLOOD SPECIMEN / Unknown 01/17/2011 4:25 PM CDT 01/17/2011 5:14 PM CDT Nell Quiroz MD LAB - CHEMISTRY JANIE KANG [facility] [address] [place] [address] * (ABNORMAL) SED RATE WESTERGREN AUTO (01/17/2011 4:25 PM CDT) Only the most recent of2 resultswithin the time period is included. Erythrocyte Sedimentation Rate Westergren 20(H) 0 - 15 mm/Hr [facility] Hematocrit 34.4(L) 40.0 - 54.0 % [facility] BLOOD SPECIMEN / Unknown 01/17/2011 4:25 PM CDT 01/17/2011 5:14 PM CDT Nell Quiroz MD LAB - HEMATOLOGY ORD ERABLES [facility] [address] [place] [address] * XR HAND BILAT MIN 3 VW (01/17/2011 4:17 PM CDT) Anatomical Region Laterality Modality Upper Extremity, Wrist / Hand Ra diographic Imaging 01/17/2011 8:50 PM CDT Impressions 01/17/2011 9:09 PM CDT Normal hands Narrative 01/17/2011 9:09 PM CDT Bilateral hands, 3 views each DATE: 01/17/2011. INDICATION: Rheumatoid arthritis, 714.0. FINDINGS: Multiple views of both hands do not reveal erosions, soft tissue swelling or significant joint space narrowing. There are no degenerative changes. Procedure Note Trinidad Xiong MD - 01/17/2011 Bilateral hands, 3 views each DATE: 01/17/2011. INDICATION: Rheumatoid arthritis, 714.0. FINDINGS: Multiple views of both hands do not reveal erosions, soft tissue swelling or significant joint space narrowing. There are no degenerative changes. IMPRESSION Normal hands Nell Quiroz MD DIAGNOSTIC IMAGING O RDERABLES * XR WRIST BILAT 3 VIEWS (01/17/2011 4:17 PM CDT) Anatomical Region Laterality Modality Wrist / Hand, Upper Extremity Ra diographic Imaging 01/17/2011 8:51 PM CDT Impressions 01/17/2011 9:09 PM CDT Normal wrists Narrative 01/17/2011 9:09 PM CDT BILATERAL WRISTS, 3 VIEWS EACH. DATE: 01/17/2011. INDICATION: 714.0, rheumatoid arthritis. FINDINGS: Multiple views of both wrists do not reveal joint space narrowing, erosions or significant degenerative change. Procedure Note Trinidad Xiong MD - 01/17/2011 BILATERAL WRISTS, 3 VIEWS EACH. DATE: 01/17/2011. INDICATION: 714.0, rheumatoid arthritis. FINDINGS: Multiple views of both wrists do not reveal joint space narrowing, erosions or significant degenerative change. IMPRESSION Normal wrists Irmolly Quiroz MD DIAGNOSTIC IMAGING O RDERABLES * MICROALBUMIN URINE RANDOM (12/20/2010 8:51 AM [employer]GE[employer]) [facility] Microalbumin Random Urine 8.7 0.0 - 17.0 ug/mL [facility] ACCOUNT BILL URINE / Unknown 12/20/2010 8 :51 AM [employer] 12/20/2010 8:52 PM [employer] Narrative Resulting Agency Comment [facility] [address] [phone] Anthony Mora MD LAB - URINE CHEMI STRY ORDERABLES [facility] ACCOUNT BILL * URINALYSIS DIPSTICK AUTO (12/20/2010 8:51 AM [employer]) Only the most recent of2 resultswithin the time period is included. Specific [place] UA 1.020 1.005 - 1.030 [facility] ACCOUNT BILL pH UA 6.0 5.0 - 7.5 [facility] ACCOUNT BILL Color UA Yellow Yellow [facility] ACCOUNT BILL Appearance Clear Clear [facility] ACCOUNT BILL Leukocyte UA Negative Negative [facility] ACCOUNT BILL Protein UA Negative Negative/Tra ce [facility] ACCOUNT BILL Glucose UA Negative Negative [facility] ACCOUNT BILL Glucose Reflex NOT NEEDED [facility] ACCOUNT BILL Comment:Ancillary determined the test is not needed Ketone UA Negative Negative [facility] ACCOUNT BILL Occult Blood Urine Negative Negative [facility] ACCOUNT BILL Bilirubin UA Negative Negative [facility] ACCOUNT BILL Urobilinogen 0.2 0.0 - 1.9 mg/dL [facility] ACCOUNT BILL Nitrite UA Negative Negative [facility] ACCOUNT BILL Microscopic Examination Urine [facility] ACCOUNT BILL Comment:Microscopic follows if indicated. URINE SPECIMEN OBTAINED BY CLEAN CATCH PROCEDURE / Unknown 12/20/2010 8:51 AM [employer] 12/20/2010 8:52 PM [employer]GE[employer] Narrative Resulting Agency [facility] [address] [phone] Anthony Mora MD LAB - URINALYSIS ORDERABLES [facility] ACCOUNT BILL * HIV 1/0/2 ANTIBODIES W CONFIRM (PO REF LAB) (12/27/2009 8:16 AM CDT) HIV-1 Antibody O.D. Ratio <1.00 <1.00 [facility] ACCOUNT BILL Comment:Index Value: Specime n reactivity relative to the negative cutoff. HIV-1/HIV-2 Non Reactive Non Reactive [facility] ACCOUNT BILL BLOOD SPECIMEN / Unknown 12/27/2009 8:16 AM CDT 12/27/2009 5:32 PM CDT Narrative Resulting Agency Comment [facility] [address] [phone] Anthony Mora MD LAB - MICROBIOLOG Y ORDERABLES Performing Organization Address [facility] Co de Phone Number [facility] ACCOUNT BILL * HERPES SIMPLEX 1+2 ANTIBODY IGG (12/27/2009 8:16 AM CDT) Herpes Simplex Virus I/II Antibody IgG Index <0.9 0.0 - 0.8 index [facility] ACCOUNT BILL Comment: Negative <0.9 Equivocal 0.9 - 1.0 Positive >1.0 . Note: Negative indicates no antibodies detected to either HSV-1 or HSV-2. Equivocal may suggest early infection. If clinically appropriate, retest at a later date. Positive indicates antibodies detected to HSV-1 and/or HSV-2. BLOOD SPECIMEN / Unknown 12/27/2009 8:16 AM CDT 12/27/2009 5:32 PM CDT Narrative Resulting Agency Comment [facility] [address] [phone] Anthony Mora MD LAB - SEROLOGY OR DERABLES [facility] ACCOUNT BILL * (ABNORMAL) VALENTINO BLOOD SCREEN (12/27/2009 8:16 AM CDT) VALENTINO Direct Positive(A ) Negative [facility] ACCOUNT BILL BLOOD SPECIMEN / Unknown 12/27/2009 8:16 AM CDT 12/27/2009 5:32 PM CDT Narrative Resulting Agency Comment [facility] [address] [phone] Anthony Mora MD LAB - CHEMISTRY O RDERABLES Performing Organization Address [facility] Co de Phone Number [facility] ACCOUNT BILL * (ABNORMAL) RHEUMATOID FACTOR BLOOD QUANTITATIVE (RF) (12/27/2009 8:15 AM CDT) Rheumatoid Factor 23.0(H) 0.0 - 13.9 IU/mL [facility] ACCOUNT BILL BLOOD SPECIMEN / Unknown 12/27/2009 8:15 AM CDT 12/27/2009 5:32 PM CDT Narrative Resulting Agency [facility] [address] [phone] Anthony Mora MD LAB - CHEMISTRY O RDERABLES [facility] ACCOUNT BILL * (ABNORMAL) C-REACTIVE PROTEIN (CRP) (12/27/2009 8:15 AM CDT) C-Reactive Protein 8.8(H) 0.0 - 4.9 mg/L [facility] ACCOUNT BILL BLOOD SPECIMEN / Unknown 12/27/2009 8:15 AM CDT 12/27/2009 5:32 PM CDT Narrative Resulting Agency Comment [facility] [address] [phone] Anthony Mora MD LAB - CHEMISTRY O RDERABLES [facility] ACCOUNT BILL Care Teams [employer] Associate Relationship Specialty Start Date End Date Anthony Mora MD [address] [phone] PCP - General 09/18/09 Nell Quiroz MD [address] [phone] Rheumatology 12/11/13
--- OUTSIDE RECORDS SUMMARY | 2024-11-21 13:41 | XMS_ITS | Encounter Summary ---
Author Organization [facility] Address [address] [place] [address] Phone Care Team Providers Care Spiritual Minister Name Role Phone Yared Gustafson DO Primary Care Provider [phone] Encounter Details Date Type Department Care Team (Late st Contact Info) Description 02/01/2018 Orders Only [facility] ProviderNaz MD [address] [place] [address] Social History Tobacco Use Types Packs/Day Years Used Date Smoking Tobacco: Never Smokeless Tobacco: Never Alcohol Use Standard Drinks/Week Comments Yes 0 (1 standard drink = 0.6 oz pur e alcohol) Sex and Gender Information Value Date Recorded Sex Assigned at Not on file Legal Sex Male 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 Historical Provider LAB BLOOD ORDERABLES Eden l Result documented in this encounter Visit Diagnoses Not on filedocumented in this encounter Care Teams Spiritual Minister Relationship Specialty Start Date End Date Yared Gustafson DO PCP - General Internal Medicine 02/01/18 documented as of this encounter
--- OUTSIDE RECORDS SUMMARY | 2024-11-21 13:41 | XMS_ITS | Referral Summary ---
Author Organization [facility] Address [address] [place] [address] Care Team Providers Care Furnace Process Supervisor Name Role Phone Yared Gustafson DO Primary Care Provider [phone] Encounters Date Type Department Care Team Description 09/16/2024 Telephone [facility] Rheumatology at [facility] [address] [place] [address] Sarah Mendieta MD Release of Information from Last 3 Months Allergies Active Allergy Reactions Criticality Noted Date Comments Latex Shellfish Derived Tree Nuts Medications fluticasone (FLONASE) 50 mcg/actuation nasal spray spray 2 spray by intranasal route 2 times every day in each nostril 0 12/25/19 13 Active montelukast (SINGULAIR) 10 mg tablet take 1 tablet (10MG) by oral route every day in the evening 0 12/25/19 13 Active methylPREDNISo lone (Medrol, Hunter,) 4 mg Dosepack follow package directions 1 packet 03/24/20 22 Active Additional Information Patient taking differently: As needed, follow package directions, Reported on 04/27/2023 methotrexate 2.5 mg tabletIndicati ons:Rheumatoid Arthritis TAKE 6 TABS ONCE A WEEK 96 tablet 3 11/26/19 24 Active hydroxychloroq uine (PLAQUENIL) 200 mg tablet Take 1 tablet (200 mg total) by mouth 2 (two) times a day 60 tablet 11 11/26/19 24 Active cyanocobalamin (Vitamin B-12) 1,000 mcg tablet Take 1 tablet (1,000 mcg total) by mouth daily Active folic acid (FOLVITE) 1 mg tablet TAKE 2 TABLETS DAILY 180 tablet 3 11/06/19 25 Active folic acid (FOLVITE) 1 mg tablet TAKE 2 TABLETS DAILY 180 tablet 3 09/05/20 23 025 Discontinued Active Problems Problem Noted Date Diagnosed Date Encounter for long-term (cur rent) use of high-risk medication 11/16/2021 Assessment & Plan (11/16/2021 12:48 PM PROCESS IMPROVEMENT CONSULTANT): Long-term use of high-risk medication requiring regular monitoring. Labs ordered, no s/s of med tox or infection. Encouraged to work with PCP to make sure all recommended cancer screens and vaccinations are complete. Avoid live-vaccines unless reviewed with driver sales first. He will have his yearly eye exam done later this month. For hydroxychloroquine: Screening Ophthalmological Evaluation Request Medication: Hydroxychloroquine (Plaquenil) Patient: Please obtain the following eye exam with your eye doctor before starting hydroxychloroquine (Plaquenil). Then, continue to obtain yearly eye exams (or as directed by your eye doctor) while taking Plaquenil. Provider: Please perform the following exams on an annual basis: Visual Acuity Visual Field testing Slit Lamp evaluation Color Vision Assessment OCT Raynaud's disease without gangrene 11/16/2021 Assessment & Plan (11/16/2021 12:58 PM PROCESS IMPROVEMENT CONSULTANT): Encourage central and extremity warming techniques. May consider amlodipine in the future. Drug indicated 07/22/2015 Overview (01/20/2017): Encounter for long-term (current) use of high-risk medication Asthma 12/24/2012 Overview (01/19/2017): Asthma Seasonal allergic rhinitis 12/24/2012 Overview (01/19/2017): Seasonal allergies Rheumatoid arthritis 12/24/2012 Overview (01/19/2017): Rheumatoid arthritis Assessment & Plan (11/16/2021 12:48 PM PROCESS IMPROVEMENT CONSULTANT): Stable on HCQ 200 mg daily and MTX 6 tabs weekly. Supplements on folic acid 2 grams daily. Labs due and patient will have drawn sometime within the next 1-2 weeks, continue to monitor. Immunizations Name Administration Dates Next Due DTaP 10/15/2005 Influenza, Quadrivalent, Spl it, Preservative Free, Intramuscular 08/03/2022 Pfizer SARS-CoV-2 Monovalent Vaccination (12+ Yrs) PURPLE 08/13/2021,01/30/2021,01/09/2021 Tdap 06/21/2017 Social History Tobacco Use Types Packs/Day Years Used Date Smoking Tobacco: Some Days Cigars Smokeless Tobacco: Never Tobacco Cessation:Ready to Q uit: Not Asked; Counseling Given: Not Answered Alcohol Use Standard Drinks/Week Comments Yes 0 (1 standard drink = 0.6 oz pur e alcohol) AUDIT-C Answer Date Recorded Q1: How often do you have a drink containing alc ohol? 2-4 times a month 11/26/2023 Q2: How many drinks containi ng alcohol do you have on a typical day when you are drinking? 1 or 2 11/26/2023 Q3: How often do you have si x or more drinks on one occasion? Monthly 11/26/2023 PHQ-2 Answer Date Recorded PHQ-2 Score 0 06/04/2019 Sex and Gender Information Value Date Recorded Sex Assigned at Not on file Legal Sex Male 10:59 AM PROCESS IMPROVEMENT CONSULTANT Gender Identity Male 02/05/2020 11:29 AM CDT Sexual Orientation Straight 08/19/2020 8: 45 AM PROCESS IMPROVEMENT CONSULTANT Last Filed Vital Signs Vital Sign Reading Time Taken Comments Blood Pressure 118/78 07/29/2024 3:26 PM CDT Pulse 94 07/29/2024 3:26 PM CDT Temperature 36.7 C (98 F) 07/29/2024 3:26 PM CDT Respiratory Rate 16 07/29/2024 3:26 PM CDT Oxygen Saturation 97% 07/29/2024 3:26 PM CDT Inhaled Oxygen Concentration - - Weight 96.1 kg (211 lb 12.8 oz) 07/29/2024 3:26 PM CDT Height 180.3 cm (5' 10.98 ) 07/29/2024 3:26 PM C DT Body Mass Index 29.56 07/29/2024 3:26 PM CDT Plan of Treatment Not on file Insurance [employer] ACCESS OOS [facility] [place] Member Subscriber Plan / Payer (Ef fective 2023-Present) Name:Crow Herman Relation to Subscriber:Self Name:Crow Herman Payer ID:[id number] (NAIC) Type:[facility] HMO/PPO Address: [address] [place] [id number] [employer] ACCESS OOS Member Subscriber Plan / Payer (Ef fective 2020-Present) Name:Crow Herman Relation to Subscriber:Self Name:Crow Herman Payer ID:[id number] (NAIC) Type:[employer] Address: [address] [place] Care Teams Furnace Process Supervisor Relationship Specialty Start Date End Date Yared Gustafson DO PCP - General Internal Medicine 02/01/18
--- OUTSIDE RECORDS SUMMARY | 2024-11-21 13:41 | XMS_ITS | Clinical Summary ---
Author Organization [facility] Michael mallorie [facility] Address [address] [facility] [place] [address] Care Team Providers Care Cook Chief Name Role Phone Yared Gustafson DO Primary Care Provider Allergies Active Allergy Reactions Criticality Noted Date Comments Latex Other (See Comments) 09/18/2009 Shellfish Derived Other (See Comments) 12/05/19 Tree Nuts Other (See Comments) 12/05/2023 Medications methotrexate (RHEUMATREX) 2.5 mg Tablet TAKE 6 TABS ONCE A WEEK 4 Active folic acid (FOLVITE) 1 mg tablet TAKE 2 TABLETS DAILY 3 Active hydroxychloroqu ine (PLAQUENIL) 200 mg tablet Take 200 mg by mouth 2 times daily. 4 Active montelukast (SINGULAIR) 10 mg tablet Take 10 mg by mouth daily at bedtime. Active fluticasone propionate (FLONASE) 50 mcg/spray [place], Suspension nasal inhaler Administer 2 Sprays in each nostril daily. Active methylPREDNISol one (MEDROL DOSPACK) 4 mg Tablets, Dose Pack follow package directions 2 Active cyanocobalamin 1,000 mcg Tablet Take 1,000 mcg by mouth daily. Active Active Problems No known active problems Encounters Date Type Department Care Team Description 11/21/2024 Telephone [facility] Oncology and Hematology - [place] [address] [facility] [address] [place] [address] Flip Hart MD lab work for appointment 11/05/2024 External Device Data STL ABSTRACTION Provider, Abstract 11/05/2024 External Device Data STL ABSTRACTION Provider, Abstract 10/29/2024 External Device Data STL ABSTRACTION Provider, Abstract from Last 3 Months Family History Medical History Relation Name Comments Diabetes Father Heart Disease Father Relation Name Status Comments Father Alive Mother Alive Sister Alive Social History Tobacco Use Types Packs/Day Years Used Date Smoking Tobacco: Never Smokeless Tobacco: Never Tobacco Cessation:Counseling Given: Not Answered Alcohol Use Standard Drinks/Week Comments Yes 7 (1 standard drink = 0.6 oz pur e alcohol) Sex and Gender Information Value Date Recorded Sex Assigned at Not on file Legal Sex Male 9:50 PM CDT Gender Identity Not on file Sexual Orientation Not on file Last Filed Vital Signs Vital Sign Reading Time Taken Comments Blood Pressure 121/87 12/05/2023 1:32 PM CHAPERON Pulse 104 12/05/2023 1:32 PM CHAPERON Temperature 36.6 C (97.9 F) 12/05/2023 1:32 PM CHAPERON Respiratory Rate 14 12/05/2023 1:32 PM CHAPERON Oxygen Saturation 95% 12/05/2023 1:32 PM CHAPERON Inhaled Oxygen Concentration - - Weight 99.3 kg (219 lb) 12/05/2023 1:32 PM CHAPERON Height 180.3 cm (5' 11 ) 12/05/2023 1:32 PM CHAPERON Body Mass Index 30.54 12/05/2023 1:32 PM CHAPERON Plan of Treatment Upcoming Encounters Date Type Department Care Team (Late st Contact Info) Description 11/24/2024 11:45 AM CHAPERON Office Visit [facility] Oncology and Hematology - [place] [address] [facility] [address] [place] [address] Flip Hart MD [address] [facility] [address] [place] [address] Health Maintenance Due Date Last Done Comments Pre-Diabetes and Diabetes Screening 1975 HEPATITIS B VACCINES (1 of 3 - 19+ 3-dose series) 1994 COLORECTAL SCREENING 2020 Colorectal Cancer Screening 2020 FIT-DNA Q 3 years 2020 FIT/FOBT Q 1 year 2020 Flex Sig/CT Colonography Q 5 years 2020 INFLUENZA VACCINE (#1) 2024 08/03/2022 COVID-19 Vaccine (2023-2 5 season) 2024 08/13/2021, 01/30/2021, 01/09/2021 Preventative Visit- Commercial 10/15/2024 0 12/10/2014, 12/11/2013, 04/04/2013, Additional history exists DTAP/TDAP/TD VACCINES (3 - T d or Tdap) 06/21/2027 06/21/2017, 10/15/2005 Insurance [facility] [id number] Care Teams Cook Chief Relationship Specialty Start Date End Date Yared Gustafson DO [address] [place] [address] PCP - General Internal Medicine 12/04/23
--- OUTSIDE RECORDS SUMMARY | 2024-11-21 13:41 | XMS_ITS | Continuity of Care Document ---
Author Organization formerly [facility] Address [address] [place] [address] Phone Care Team Providers Care Pcts Name Role Phone Curt Bell Unavailable Unavailable Procedures Procedure Date Office/outpatient Visit, [facility] Advance Directives Directive Yes / No Effective Date File Name No Information Encounters Encounter Description Practice Location Reason(s) For Visit Diagnoses Date Provider Providers Copied on Encounter Office/outpat ient Visit, [facility], [address], [place], [place], [id number], [place] tel:[phone] [facility] No Information 0 Arabella Elias. [address], [place], [address], [place]. tel:[phone] Family History Family Member Type Diagnosis Age At Onset No Information Payers Payer name Insurance type Covered democrat ID Authoriza tion(s) No Information Social History Type Description Quantity Date Captured Comments Sex Female Smoking Status No Information Chief Complaint And Reason For Visit No Information Reason For Referral Reason For Referral No Information History Of Present Illness Encounter Date Complaint History Of Prese nt Illness No Information Functional Status Date Functional Assessmen t No Information Instructions Date Instruction Additional Infor mation No Information Assessments Type Assessment Date No Information Patient Care Teams Name Effective Dates (start - stop) Status Members No Information
--- OUTSIDE RECORDS SUMMARY | 2024-11-21 13:41 | XMS_ITS | Clinical Summary ---
Author Organization [facility] Address [address] [place] [address] Care Team Providers Care Parachute Line Tier Name Role Phone Yared Gustafson DO Primary Care Provider [phone] Allergies Active Allergy Reactions Criticality Noted Date [...] 11/16/2021 Assessment & Plan (11/16/2021 12:48 PM BLEACHER PULP): Long-term use of high-risk medication requiring regular monitoring. Labs ordered, no s/s of med tox or infection. Encouraged to work with PCP to make sure all recommended cancer screens and vaccinations are complete. Avoid live-vaccines unless reviewed with oracle distribution consultant first. He will have his yearly eye [...] 11/16/2021 Assessment & Plan (11/16/2021 12:58 PM BLEACHER PULP): Encourage central and extremity warming techniques. May consider amlodipine in the future. Drug indicated 07/22/2015 Overview (01/20/2017): Encounter for long-term (current) use of high-risk medication Asthma 12/24/2012 Overview (01/19/2017): Asthma Seasonal allergic rhinitis 12/24/2012 Overview (01/19/2017): Seasonal allergies Rheumatoid arthritis 12/24/2012 Overview (01/19/2017): Rheumatoid arthritis Assessment & Plan (11/16/2021 12:48 PM BLEACHER PULP): Stable on HCQ 200 mg daily and MTX 6 tabs weekly. Supplements on folic acid 2 grams daily. Labs due and patient will have drawn sometime within the next 1-2 weeks, continue to monitor. Encounters Date Type Department Care Team Description 09/16/2024 Telephone [facility] Medical Group Rheumatology at [facility] [address] [place] [address] Sarah Mendieta MD Release of Information from Last 3 Months Immunizations Name Administration Dates Next Due DTaP 10/15/2005 Influenza, Quadrivalent, Spl it, Preservative Free, Intramuscular 08/03/2022 Pfizer SARS-CoV-2 Monovalent Vaccination (12+ Yrs) PURPLE 08/13/2021,01/30/2021,01/09/2021 Tdap 06/21/2017 Medical History Medical History Date Comments Rheumatoid arthritis (HCC) 2009 Rheum atoid arthritis Family History Medical History Relation Name Comments Abdominal Aortic Aneurysm Father AA A; Dementia Father Hypertension Father Hypertension; Other Mother Alive and well; has RA Parkinsonism Mother Rheum arthritis Mother Rheumatoid a rthritis; Other Mother's Brother 2 Alive and well; has RA Other Sister 2 Alive and well; has RA Relation Name Status Comments Father Mother Alive Mother's Brother 1 Alive Mother's Brother 2 Sister 1 Alive Sister 2 Social History Tobacco Use Types Packs/Day Years [...] on file Legal Sex Male 10:59 AM BLEACHER PULP Gender Identity Male 02/05/2020 11:29 AM CDT Sexual Orientation Straight 08/19/2020 8: 45 AM BLEACHER PULP Obstetrics History Last Filed Vital Signs Vital Sign Reading [...] cm (5' 10.98 ) 07/29/2024 3:26 PM CDT Body Mass Index 29.56 07/29/2024 3:26 PM CDT Plan of Treatment Health Maintenance Due Date Last Done Comments Colon Cancer Screening-Colonoscopy 1975 Hepatitis C Screening 1975 Pneumococcal vaccine <65 (1 of 2 - PCV) 1981 Hepatitis B Screening 1993 Regular Well Visit/Exam 18-64 1993 Zoster Vaccine (1 of 2) 1994 Depression Screening 02/01/2020 01/31/2019 Covid-19 Vaccine (5 - 2023-2 5 season) 2024 07/13/2023, 08/13/2021, 01/30/2021, Additional history exists Influenza Vaccine (#1) 2024 , 08/10/2022, 08/03/2022, Additional history exists DTaP/Tdap/Td Vaccine (4 - Td or Tdap) 07/01/2032 07/01/2022, 06/21/2017, 10/15/2005 Insurance [employer] [facility] OOS [facility] [place] [employer] OOS Member Subscriber Plan / Payer ( fective 2020-Present) Name:Crow Herman Relation to Subscriber:Self Name:Crow Herman Payer ID:[id number] (NAIC) Type:[facility] Address: [address] [place] Care Teams Parachute Line Tier Relationship Specialty Start Date End Date Yared Gustafson DO PCP - General Internal Medicine 02/01/18
--- OUTSIDE RECORDS SUMMARY | 2024-11-21 13:41 | XMS_ITS | Encounter Summary ---
Author Organization [facility] [employer] [facility] Address [address] [place] [address] Care Team Providers Care A/C Tech Name Role Phone Yared Gustafson DO Primary Care Provider Reason for Visit * Reason Onset Date Comments lab work for appointment 11/21/2024 Encounter Details Date Type Department Care Team (Late st Contact Info) Description 11/21/[address] [facility] Oncology and Hematology - [place] [address] [place] [address] Flip Hart MD [address] [facility] [address] [place] [address] lab work for appointment Social History Tobacco Use Types Packs/Day Years Used Date Smoking Tobacco: Never Smokeless Tobacco: Never Alcohol Use Standard Drinks/Week Comments Yes 7 (1 standard drink = 0.6 oz pur e alcohol) Sex and Gender Information Value Date Recorded Sex Assigned at Not on file Legal Sex Male 9:50 PM CDT Gender Identity Not on file Sexual Orientation Not on file documented as of this encounter Miscellaneous Notes * Telephone Encounter - Nancy Rangel - 11/21/2024 9:06 AM CST Called patient for appointment reminder and need for labs. OSITE BOAT BUILDER documented in this encounter Plan of Treatment Upcoming Encounters Date Type Department Care Team (Late st Contact Info) Description 11/24/2024 11:45 AM COMPOSITE BOAT BUILDER Office Visit [facility] Oncology and Hematology - [place] [address] [facility] [address] [place] [address] Flip Hart MD [address] [facility] [address] [place] [address] documented as of this encounter Visit Diagnoses Not on filedocumented in this encounter Care Teams A/C Tech Relationship Specialty Start Date End Date Yared Gustafson DO [address] [facility] [address] [place] [address] PCP - General Internal Medicine 12/04/23 documented as of this encounter
--- OUTSIDE RECORDS SUMMARY | 2024-11-21 13:41 | XMS_ITS | Clinical Summary ---
Author Organization [facility] Address [address] [facility] [place] [address] Care Team Providers Care Compressed Gases Tester Name Role Phone Anthony Mora MD Primary Care Provider [phone] Nell Quiroz MD Unavailable Unavailable Source Comments [facility],non-owned Affiliates and Associated Physician Practices is amultiple site organization consisting of ambulatory clinics and hospital sitesin [place], [place], [place] and [place]. This disclosure is being madepursuant to the Care Everywhere program and may not contain all information available regarding this patient. Last updated 18.[facility] Allergies Active Allergy Reactions Criticality Noted Date [...] Next Due DTaP VACCINE IM (6wk-6yrs) 10/15/2005 Family History Medical History Relation Name Comments CAD (Coronary Artery Disease) Father Diabetes Father Hypercholesterolemia Father Hypertension Father Thyroid Disease Father Arthritis - Rheumatoid Mother Arthritis - Rheumatoid Sister 2 Thyroid Disease Sister 3 Relation Name Status Comments Father Alive Mother Alive Sister 1 Alive Sister 2 Sister 3 Social History Tobacco Use Types Packs/Day Years [...] 02/04/2015 2:55 PM CDT Plan of Treatment Health Maintenance Due Date Last Done Comments JUAN ANTONIO (AGES 45-75) - COLON CA SCREENING 1975 COLON MONITORING 1975 COLONOSCOPY - COLON CA SCREENING 1975 CT COLONOGRAPHY - COLON CA SCREENING 1975 Colorectal Cancer Screening 1975 FIT - COLON CA SCREENING 1975 FLEX SIG - COLON CA SCREENING 1975 HEPATITIS C SCREENING 12/04/1993 HEPATITIS B VACCINE (1 of 3 - 19+ 3-dose series) 1994 PNEUMOCOCCAL VACCINE (1 of 2 - PCV) 1994 DTAP/TDAP/TD VACCINES (2 - Tdap) 10/15/2015 10/15/2005 LIPID TESTING 12/10/2019 12/10/2014, 11/16, 04/04/2013, Additional history exists COVID-19 VACCINE (1 - 2023-) 06/15/2024 INFLUENZA VACCINE (#1) 2024 DEPRESSION SCREENING 10/15/2024 ZOSTER VACCINE (1 of 2) 2025 HIV SCREENING Completed 12/27/2009 HIB VACCINE Aged Out No longer eligi ble based on patient's age to complete this topic HPV VACCINE Aged Out No longer eligi ble based on patient's age to complete this topic MENINGOCOCCAL (Group B) VACCINE Aged Out No longer eligible based on patient's age to complete this topic MENINGOCOCCAL VACCINE Aged Out No maxine paul eligible based on patient's age to complete this topic Goals Goal Patient Goal Type Associated Problems Recent Progress Patient-Stated? Author Weight < 90.719 kg (200 lb) Weight 98.4 kg (217 lb)( 5 2:55 PM CDT) No Sharon Farnsworth MA Note: Try to lower your weight to below 200 pounds before your next visit Procedures Procedure Name Priority Date/Time Associated Diagnosis Comments LIPID PROFILE W LDL/HDL RATIO Routine 12/10/2014 10:12 AM CORRECTIONAL PROGRAM OFFICER Annual physical exam HIV 1/0/2 ANTIBODIES W CONFIRM Routine 12/27/2009 8:16 AM CDT Myalgia and Myositis from Last 3 Months or Most Recently Relevant to Health Maintenance Results * LIPID PROFILE W LDL/HDL (PO REF LAB) (12/10/2014 10:12 AM CORRECTIONAL PROGRAM OFFICER) Cholesterol 151 100 - 199 mg/dL [facility] [...] BLOOD SPECIMEN / Unknown 12/10/2014 10:12 AM CORRECTIONAL PROGRAM OFFICER 12/10/2014 12:55 PM CORRECTIONAL PROGRAM OFFICER Narrative Resulting Agency Comment [facility] [address] [id number] Anthony Mora MD LAB - CHEMISTRY O RDERABLES Performing Organization Address City/[facility] Co de Phone Number [facility] ACCOUNT BILL * HIV 1/0/2 ANTIBODIES W CONFIRM (PO REF LAB) (12/27/2009 8:16 AM CDT) HIV-1 Antibody O.D. Ratio <1.00 <1.00 [facility] ACCOUNT BILL Comment:Index Value: Specime n reactivity relative to the negative cutoff. HIV-1/HIV-2 Non Reactive Non Reactive [facility] ACCOUNT BILL BLOOD SPECIMEN / Unknown 12/27/2009 8:16 AM CDT 12/27/2009 5:32 PM CDT Narrative Resulting Agency Comment [facility] [address] [id number] Anthony Mora MD LAB - MICROBIOLOG Y ORDERABLES [facility] ACCOUNT BILL from Last 3 Months or Most Recently Relevant to Health Maintenance Care Teams Compressed Gases Tester Relationship Specialty Start Date End Date Anthony Mora MD [address] [address] PCP - General 09/18/09 Nell Quiroz MD [address] [address] Rheumatology 12/11/13
[2024-11-21 13:50] LABS: Basophils Percent Auto 0.7 % (0.2-1.2); Eosinophils Absolute Auto 0.1 K/mm3 (0-0.3); Eosinophils Percent Auto 1.4 % (0-4.4); Hematocrit 38.4 % (42.0-52.0); Immature Granulocyte Absolute 0.02 K/mm3 (0.00-0.031); Immature Granulocyte Percent A 0.3 % (0-0.5); Lymphocytes Absolute Auto 1.12 K/mm3 (0.9-3.2); Mean Corpuscular HGB Conc 33.9 g/dl (32-36); Mean Corpuscular Hemoglobin 31.8 pg (26-34); Mean Corpuscular Volume 93.9 fl (80-100); Mean Platelet Volume 9.2 fl (7.4-10.4); Monocytes Absolute Auto 0.8 K/mm3 (0.1-0.6); Monocytes Percent Auto 13.9 % (2.6-8.5); Neutrophils Absolute Auto 3.8 K/mm3 (1.3-6.7); Neutrophils Percent Auto 64.7 % (45.5-73.1); Platelet Count Result 264 k/mm3 (150-375); Red Blood Count 4.09 M/mm3 (4.6-6.20); Red Cell Distribution Width 13.9 % (11.5-14.5); White Blood Count 5.9 K/mm3 (4.5-10.0)
[2024-11-21 16:20] LABS: Iron 87 ug/dL (49-181)
[2024-11-21 16:21] LABS: Anion Gap 10 mmol/L (4-12); Blood Urea Nitrogen 15 mg/dL (9-20); Calcium 9.8 mg/dL (8.4-10.2); Carbon Dioxide 29 mmol/L (22-30); Chloride 102 mmol/L (98-107); Estimated Glomerular Filt Rate > 60; Glucose 89 mg/dL (65-110); Potassium 4.4 mmol/L (3.4-5.0); Sodium 141 mmol/L (137-145)
[2024-11-21 16:30] LABS: Percent Iron Saturation 26 % (20-50)
== END 2024-11-21 13:39 | disposition home or self-care (01) ==
LOC: ANHLAB 13:39
PROVIDERS: PCP Clinical Nurse Specialist; Visit Provider Internal Medicine Hematology & Oncology
DX: D64.9 Anemia, unspecified (principal)
CPT/HCPCS: 36415; 80048; 82607; 82728; 83540; 83550; 85025

== ENCOUNTER 2025-01-16 14:33 | Emergency (ER) | payer OTHER, SELFPAY ==
--- NOTE | 2025-01-16 14:42 | ED_ITS ---
HPI - URI/Sore Throat General Chief Complaint: Upper Respiratory Infection Stated Complaint: Cough Time Seen by Provider: 01/16/25 14:42 Source: patient and RN notes reviewed Mode of arrival: ambulatory Limitations: no limitations History of Present Illness HPI Narrative: 49-year-old male presents with concern for one-week history of cough, chest congestion. Reports history of asthma. Reports history of propensity to chest infections. He reports he now noticed a right cervical swollen lymph node. He reports exertional shortness of breath. He denies needing his inhaler more often than usual. MD elicited complaint: cough Related Data Home Medications ?Medication ?Instructions ?Recorded ?Confirmed ?Last Taken ?Type fluticasone propionate 50 2 spray intranasal DAILY 04/28/20 02/21/23 12/04/21 History mcg/actuation nasal spray,suspension (Flonase Allergy Relief) folic acid 1 mg tablet 1 mg PO DAILY 04/28/20 02/21/23 12/04/21 History hydroxychloroquine 200 mg tablet 200 mg PO DAILY 04/28/20 02/21/23 12/04/21 History methotrexate sodium 15 mg tablet 15 mg PO WEEKLY 04/28/20 02/21/23 12/04/21 History (Trexall) mecobalamin (vitamin B12) 1,000 1,000 mcg PO DAILY 08/08/24 Unknown History mcg chewable tablet Allergies Allergy/AdvReac Type Severity Reaction Status Date / Time latex Allergy Rash Verified 08/08/24 09:05 tree nut Allergy Unknown Verified 08/08/24 09:05 Review of Systems Review of Systems: CONSTITUTIONAL: Denies malaise, chills, sweats, or fever. EYES: Denies visual changes, redness, or discharge. ENT: Reports rhinorrhea, congestion, sinus pain. Reports swollen lymph node CARDIOVASCULAR: Denies chest pain, palpitations, or edema. RESPIRATORY: Reports cough, exertional dyspnea. GASTROINTESTINAL: Denies abdominal pain, nausea, vomiting, diarrhea SKIN: Denies rash or itching. MUSCULOSKELETAL: Denies myalgia. NEUROLOGIC: Denies headache. All systems reviewed & are unremarkable except as noted in HPI and below PMFSH Past Medical History Medical History Need for influenza vaccination Rheumatoid arthritis Surgical History Surgical History History of rhinoplasty 1994 Family History Family History Father Hypertension Status post double vessel coronary artery bypass Dementia Mother Rheumatoid arthritis Parkinsons disease Sibling Hypothyroidism Systemic lupus erythematosus Familial adenomatous polyposis Social History Social History Social History: Only smoke a cigar while playing golf. Smoking status: Never smoker Tobacco type: pipe and cigars Alcohol intake: current Drinks per week: 7 Substance use: current Substance use type: marijuana Other substance usage details: edibles Current Housing: Decline to Answer Concerned About Future Housing: Decline to Answer Difficulty Paying Gas/Electric Bills: Decline to Answer Difficulty Paying for Meds: Decline to Answer Currently Unemployed: Decline to Answer Education: Decline to Answer Difficulty w/ Childcare or Family Care: Decline to Answer Living arrangements: with family Spiritual care concerns: No Comments At time of signature, agree with nursing past medical, surgical, social and family history. There is no relevant family history pertinent to the presenting complaint Exam Narrative: GENERAL: Nontoxic-appearing, well-nourished, and in no acute distress. HEAD: Normocephalic EYES: PERRLA, conjunctivae clear ENT: Nares clear. Mucous membranes moist. TM pearly norwood with dull light reflex bilaterally; no tragal tenderness. Oropharynx not erythematous without lesions. Tonsils not enlarged and without exudate, no drooling, no hoarseness, no trismus, uvula midline. NECK: Supple. No lymphadenopathy CHEST: Clear to auscultation, breath sounds equal. No wheezing, rhonchi, rales, or stridor. No respiratory distress, speaks in full sentences. HEART: Regular rate and rhythm. No murmur heard. SKIN: Warm, dry, no rash. NEURO: Alert and oriented x3. PSYCH: Normal mood and affect Course Course Emergency Course: Patient is aware of diagnosis, understands and agrees to treatment plan. Anticipatory guidance given. Patient agrees to follow-up as directed and is aware of reasons to seek care at the emergency department. Portions of this record may have been created with voice recognition software Level of Care: Express Care Visit Vital Signs Vital signs: Reviewed. MDM - URI/Sore Throat MDM Narrative Medical decision making narrative: Differential diagnosis considered: Sánchez virus, strep pharyngitis, allergic rhinitis, upper respiratory tract infection, sinusitis, rhinosinusitis, nasopharyngitis. viral pharyngitis, otitis media, otitis externa, pneumonia, bronchitis, viral cough syndrome, viral syndrome, and influenza. Exam findings show no acute concerns or changes; patient is non-toxic appearing and is in no distress. Patient is appropriate for outpatient treatment and follow-up. Lab Data Attestation: I reviewed the patient's lab results. Critical Care Time Critical Care Time Critical Care Time: No Discharge Plan Discharge Clinical Impression: Sinobronchitis Patient Disposition: Home, Self-Care Condition: Stable Instructions: Antibiotic Form, Acute Bronchitis (ED) Additional Instructions: Take medication as prescribed Recommend antihistamine such as Benadryl at night time and Zyrtec or Tracy during the day Use your inhaler as needed for cough, wheezing, shortness of breath or chest tightness. Also, recommend symptomatic treatment includes: rest, fluids, and increase humidity of the air at home. Recommend Acetaminophen as directed on the bottle to reduce fever, pain, headache. Avoid smoking/second-hand smoke. Please schedule a follow-up visit with your personal physician for further evaluation and treatment within 3-5days. Including recheck and discussion of your blood pressure. If your symptoms persist, change or worsen significantly before you can contact your personal physician then please, without delay, go to the emergency department for further evaluation. Patient Language: Guyanese Prescriptions: New doxycycline monohydrate 100 mg tablet 100 mg PO BID 7 Days Qty: 14 0RF methylprednisolone [Medrol (Hunter)] 4 mg tablets,dose pack See Rx Instructions .ROUTE .COMPLEX Qty: 21 0RF Rx Instructions: orally per package directions No Action fluticasone propionate [Flonase Allergy Relief] 50 mcg/actuation spray,suspension 2 spray NASAL DAILY Rx Instructions: administer into each nostril folic acid 1 mg tablet 1 mg PO DAILY hydroxychloroquine 200 mg tablet 200 mg PO DAILY Trexall 15 mg tablet 15 mg PO WEEKLY mecobalamin (vitamin B12) 1,000 mcg tablet,chewable 1,000 mcg PO DAILY montelukast [Singulair] 10 mg tablet 10 mg PO DAILY Qty: 90 1RF Follow-up/Referrals: PHYSICIAN,TYING MACHINE OPERATOR LUMBER [Primary Care Provider] - Stand Alone Forms: Work/School Release IP Time of Disposition: 14:52
[2025-01-16 14:44] VITALS: BP 136/96; PULSE 75; RESP 16; TEMP 36.4; O2SAT 100
== END 2025-01-16 15:01 | disposition home or self-care (01) ==
PROVIDERS: Emergency Provider Nurse Practitioner
DX: J32.9 Chronic sinusitis, unspecified (principal); J40 Bronchitis, not specified as acute or chronic; M06.9 Rheumatoid arthritis, unspecified; Z72.0 Tobacco use; F12.90 Cannabis use, unspecified, uncomplicated
CPT/HCPCS: 99213; G0463

== ENCOUNTER 2025-05-26 13:24 | Outpatient (CLI) | payer OTHER, SELFPAY ==
--- OUTSIDE RECORDS SUMMARY | 2025-05-26 13:41 | XMS_ITS | Clinical Summary ---
Author Organization [facility] [employer] Address [address] [place] [address] Care Team Providers Care Clutch Rebuilder Name Role Phone Anthony Mora MD Primary Care Provider [phone] Nell Quiroz MD Unavailable Unavailable Source Comments [facility] [employer],non-owned Affiliates and Associated Physician Practices is amultiple site organization consisting of ambulatory clinics and hospital sitesin [place], [place] and [place]. This disclosure is being madepursuant to the Care Everywhere program and may not contain all information available regarding this patient. Last updated 18.[facility] [employer] Allergies Active Allergy Reactions Criticality Noted Date Comments Latex 09/18/2009 Medications * Be aware that medications may not be up to date on this document. Alwaysverify current medications with the patient. methotrexate (RHEUMATREX) 2.5 MG tablet Take 2.5 mg by mouth. 4 tabs weekly Active hydroxychloroqu ine (PLAQUENIL) 200 MG tabletIndicatio ns:Rheumatoid arthritis(714.0 ) (HCC) Take 1 Tab by mouth once daily. 90 Tab 3 2 Active folic acid (FOLVITE) 1 MG tabletIndicatio ns:Bronchitis, acute Take 1 mg by mouth 2 times daily. Active albuterol HFA (PROAIR HFA) 108 (90 BASE) MCG/ACT inhalerIndicati ons:Asthma (HCC) Inhale 2 Puffs by mouth every 6 hours as needed. 3 Inhaler 1 5 Active predniSONE (DELTASONE) 10 MG tabletIndicatio ns:Achilles tendonitis, right 4 tabs daily for 2 days the 3 tabs daily for 4 days then 2 tabs daily for 4 days then 1 tab daily for 4 days 32 Tab 0 5 Active fluticasone propionate (FLONASE) 50 MCG/ACT nasal spray USE 1 SPRAY IN EACH NOSTRILTWICE DAILY. APPOINTMENT DUE 05/2014. PLEASE CALL TO SCHEDULE. 48 g 2 5 Active montelukast (SINGULAIR) 10 MG tablet TAKE 1 TABLET AT BEDTIME. APPOINTMENT DUE 05/2014. NEED TO SCHEDULE FOR FURTHER REFILLS. 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 Not on file Not on file Not on fi le Last Filed Vital Signs Vital Sign Reading Time Taken Comments Blood Pressure 100/60 02/04/2015 2:55 PM CDT Pulse 81 01/26/2015 3:38 PM CDT Temperature - - Respiratory Rate 16 01/26/2015 3:38 PM CDT Oxygen Saturation 98% 01/26/2015 3:38 PM CDT Inhaled Oxygen Concentration - - Weight 98.4 kg (217 lb) 02/04/2015 2:55 PM CDT Height 180.3 cm (5' 11) 02/04/2015 2:55 PM CDT Body Mass Index 30.27 02/04/2015 2:55 PM CDT Plan of Treatment Health Maintenance Due Date Last Done Comments COLOGUARD (AGES 45-75) - COLON CA SCREENING 1975 COLON MONITORING 1975 COLONOSCOPY - COLON CA SCREENING 1975 CT COLONOGRAPHY - COLON CA SCREENING 1975 Colorectal Cancer Screening 1975 FIT - COLON CA SCREENING 1975 FLEX SIG - COLON CA SCREENING 1975 HEPATITIS C SCREENING 12/04/1993 HEPATITIS B VACCINE (1 of 3 - 19+ 3-dose series) 1994 DTAP/TDAP/TD VACCINES (2 - Tdap) 10/15/2015 10/15/2005 LIPID TESTING 12/10/2019 12/10/2014, 11/16, 04/04/2013, Additional history exists COVID-19 VACCINE ( - ) 06/15/2024 DEPRESSION SCREENING 10/15/2024 INFLUENZA VACCINE (#1) 2025 ZOSTER VACCINE (1 of 2) 2025 HIV SCREENING Completed 12/27/2009 HIB VACCINE Aged Out No longer eligi ble based on patient's age to complete this topic HPV VACCINE Aged Out No longer eligi ble based on patient's age to complete this topic MENINGOCOCCAL (Group B) VACCINE SHARED DECISION-MAKING Aged Out No longer eligible based on patient's age to complete this topic MENINGOCOCCAL GROUPS A/C/Y/W VACCINE Aged Out No longer eligible based [...] W LDL/HDL RATIO Routine 12/10/2014 10:12 AM VETERANS CONTACT REPRESENTATIVE Annual physical exam HIV 1/0/2 ANTIBODIES W CONFIRM Routine 12/27/2009 8:16 AM CDT Myalgia and Myositis from Last 3 Months or Most Recently Relevant to Health Maintenance Results * LIPID PROFILE W LDL/HDL (PO REF LAB) (12/10/2014 10:12 AM VETERANS CONTACT REPRESENTATIVE) Cholesterol 151 100 - 199 mg/dL [facility] [...] BLOOD SPECIMEN / Unknown 12/10/2014 10:12 AM VETERANS CONTACT REPRESENTATIVE 12/10/2014 12:55 PM VETERANS CONTACT REPRESENTATIVE Narrative Resulting Agency Comment [facility] [address] [phone] us Anthony Mora MD LAB - CHEMISTRY ORDERABLE S Final Result [facility] ACCOUNT BILL [address] [place] [address] * HIV 1/0/2 ANTIBODIES W CONFIRM (PO REF LAB) (12/27/2009 8:16 AM CDT) HIV-1 Antibody O.D. Ratio <1.00 <1.00 [facility] ACCOUNT BILL Comment:Index Value: Specime n reactivity relative to the negative cutoff. HIV-1/HIV-2 Non Reactive Non Reactive [facility] ACCOUNT BILL BLOOD SPECIMEN / Unknown 12/27/2009 8:16 AM CDT 12/27/2009 5:32 PM CDT Narrative Resulting Agency Comment [facility] [address] [facility] [phone] us Anthony Mora MD LAB - MICROBIOLOGY ORDERA BLES Final Result [facility] ACCOUNT BILL [address] [place] [address] from Last 3 Months or Most Recently Relevant to Health Maintenance Insurance Care Teams Clutch Rebuilder Relationship Specialty Start Date End Date Anthony Mora MD [address] [address] PCP - General 09/18/09 Nell Quiroz MD [address] [address] Rheumatology 12/11/13
--- OUTSIDE RECORDS SUMMARY | 2025-05-26 13:41 | XMS_ITS | Encounter Summary ---
Author Organization [facility] Address [address] [place] [address] Phone Care Team Providers Care Filler Shredder Helper Name Role Phone Yared Gustafson DO Primary Care Provider [phone] Encounter Details Date Type Department Care Team (Late st Contact Info) Description 02/01/2018 Orders Only [facility] ProviderNaz MD [address] [place], [place] [id number] Social History Tobacco Use Types Packs/Day Years Used Date Smoking Tobacco: Never Smokeless Tobacco: Never Alcohol Use Standard Drinks/Week Comments Yes 0 (1 standard drink = 0.6 oz pur e alcohol) Sex and Gender Information Value Date Recorded Sex Assigned at Not on file Legal Sex Male 10:59 AM GARDEN IMPLEMENT MECHANIC Gender Identity Male 02/05/2020 11:29 AM CDT Sexual Orientation Straight 08/19/2020 8: 45 AM GARDEN IMPLEMENT MECHANIC documented as of this encounter Plan of [...] on filedocumented in this encounter Care Teams Filler Shredder Helper Relationship Specialty Start Date End Date Yared Gustafson DO PCP - General Internal Medicine 02/01/18 documented as of this encounter
--- OUTSIDE RECORDS SUMMARY | 2025-05-26 13:41 | XMS_ITS | Clinical Summary ---
Author Organization [facility] Address [address] [place] [address] Care Team Providers Care Oil Distributor Name Role Phone Yared Gustafson DO Primary Care Provider [phone]- [phone] Allergies Active Allergy Reactions Criticality Noted Date Comments Latex Shellfish Derived Tree Nuts Medications fluticasone (FLONASE) 50 mcg/actuation nasal spray spray 2 spray by intranasal route 2 times every day in each nostril 0 3 Active montelukast (SINGULAIR) 10 mg tablet take 1 tablet (10MG) by oral route every day in the evening 0 3 Active methylPREDNISol one (Medrol, Hunter,) 4 mg Dosepack follow package directions 1 packet 2 Active Additional Information Patient not taking.Reported on 03/03/2025 cyanocobalamin (Vitamin B-12) 1,000 mcg tablet Take 1 tablet (1,000 mcg total) by mouth daily Active folic acid (FOLVITE) 1 mg tablet TAKE 2 TABLETS DAILY 180 tablet 3 5 Active methotrexate 2.5 mg tabletIndicatio ns:Rheumatoid Arthritis TAKE 6 TABLETS ONCE A WEEK 78 tablet 3 5 Active hydroxychloroqu ine (PLAQUENIL) 200 mg tablet TAKE 1 TABLET TWICE A DAY 180 tablet 3 5 Active Active Problems Problem Noted Date Diagnosed Date Encounter for long-term (cur rent) use of high-risk medication 11/16/2021 Assessment & Plan (11/16/2021 12:48 PM INFANTRY WEAPONS OFFICER): Long-term use of high-risk medication requiring regular monitoring. Labs ordered, no s/s of med tox or infection. Encouraged to work with PCP to make sure all recommended cancer screens and vaccinations are complete. Avoid live-vaccines unless reviewed with faith doctor first. He will have his yearly eye [...] 11/16/2021 Assessment & Plan (11/16/2021 12:58 PM INFANTRY WEAPONS OFFICER): Encourage central and extremity warming techniques. May consider amlodipine in the future. Drug indicated 07/22/2015 Overview (01/20/2017): Encounter for long-term (current) use of high-risk medication Asthma 12/24/2012 Overview (01/19/2017): Asthma Seasonal allergic rhinitis 12/24/2012 Overview (01/19/2017): Seasonal allergies Rheumatoid arthritis 12/24/2012 Overview (01/19/2017): Rheumatoid arthritis Assessment & Plan (11/16/2021 12:48 PM INFANTRY WEAPONS OFFICER): Stable on HCQ 200 mg daily and MTX 6 tabs weekly. Supplements on folic acid 2 grams daily. Labs due and patient will have drawn sometime within the next 1-2 weeks, continue to monitor. Encounters Date Type Department Care Team Description 03/12/2025 Orders Only [facility] Rheumatology at [address] [place] [phone] Sarah Mendieta MD 03/03/2025 3:30 PM CDT Office Visit [facility] at [facility] [address] [place] [address] Sarah Mendieta MD Rheumatoid arthritis involving multiple sites with positive rheumatoid factor (HCC) (Primary Dx); Encounter for long-term (current) use of high-risk medication from Last 3 Months Immunizations Immunization Administration Dates Next Due DTaP 10/15/2005 Influenza, [...] Types Packs/Day Years Used Date Smoking Tobacco: Former Cigars Smokeless Tobacco: Never Tobacco Cessation:Counseling Given: Not [...] on file Legal Sex Male 10:59 AM INFANTRY WEAPONS OFFICER Gender Identity Male 02/05/2020 11:29 AM CDT Sexual Orientation Straight 08/19/2020 8: 45 AM INFANTRY WEAPONS OFFICER Obstetrics History Last Filed Vital Signs Vital Sign Reading Time Taken Comments Blood Pressure 124/80 03/03/2025 3:44 PM CDT Pulse 75 03/03/2025 3:44 PM CDT Temperature 36.5 C (97.7 F) 03/03/2025 3:44 PM CDT Respiratory Rate 16 07/29/2024 3:26 PM CDT Oxygen Saturation 99% 03/03/2025 3:44 PM CDT Inhaled Oxygen Concentration - - Weight 102.1 kg (225 lb) 03/03/2025 3:44 PM CDT Height 180.3 cm (5' 10.98) 03/03/2025 3:44 PM C DT Body Mass Index 31.4 03/03/2025 3:44 PM CDT Plan of Treatment Health Maintenance Due Date Last Done Comments Colon Cancer Screening-Colonoscopy 1975 Hepatitis C Screening 1975 Hepatitis B Screening 1993 Regular Well Visit/Exam 18-64 1993 Pneumococcal vaccine <65 (1 of 2 - PCV) 1994 Zoster Vaccine (1 of 2) 1994 Depression Screening 02/01/2020 01/31/2019 Covid-19 Vaccine (5 - 2023-2 5 season) 2024 07/13/2023, 08/13/2021, 01/30/2021, Additional history exists Influenza Vaccine (#1) 2025 , 08/10/2022, 08/03/2022, Additional history exists DTaP/Tdap/Td Vaccine (4 - Td or Tdap) 07/01/2032 07/01/2022, 06/21/2017, 10/15/2005 Procedures Procedure Name Priority Date/Time Associated Diagnosis Comments SPECIMEN STATUS REPORT Routine 3:20 PM CDT ERYTHROCYTE SEDIMENTATION RATE Routine 03/12/2025 3:20 PM CDT CBC WITHOUT DIFFERENTIAL Routine 03/12/2025 3:20 PM CDT COMPREHENSIVE METABOLIC PANEL Routine 03/12/2025 3:20 PM CDT from Last 3 Months Results * Specimen Status Report (03/12/2025 3:20 PM CDT) Specimen Status Report Comment [facility] - 01 Comment: Madison Avila CMP14 Default Madison Avila CMP14 Default A hand-written panel/profile was received from your office. In accordance with the [facility] Ambiguous Test Code Policy dated April 2003, we have completed your order by using the closest currently or formerly recognized AMA panel. We have assigned Comprehensive Metabolic Panel (14), Test Code #676607 to this request. If this is not the testing you wished to receive on this specimen, please contact the [facility] Client Inquiry/Technical Services Department to clarify the test order. We appreciate your business. 03/12/2025 3:20 PM CDT 03/12/2025 Narrative [facility] - 03/13/2025 7:09 AM CDT Performed at: [address] [place] [id number] Shadow Graph Weight Operator: Walt Solitario PhD, Phone: [phone] Sarah Mendieta MD LAB BLOOD ORDERABLES Final Result Performing Organization Address [facility] Co de Phone Number [facility] - * Erythrocyte sedimentation rate (03/12/2025 3:20 PM CDT) Erythrocyte sedimentation rate 13 0 - 15 mm/hr [facility] - 01 03/12/2025 3:20 PM CDT 03/12/2025 Narrative [facility] - 03/13/2025 7:09 AM CDT Performed at: [address] [place] [id number] Shadow Graph Weight Operator: Walt Solitario PhD, Phone: [phone] Sarah Mendieta MD LAB BLOOD ORDERABLES Final Result Performing Organization Address [facility] Co de Phone Number [facility] - * (ABNORMAL) CBC without differential (03/12/2025 3:20 PM CDT) Pathologist [facility] WBC 4.1 3.4 - 10.8 x10E3/uL [facility] - 01 RBC 3.80(L) 4.14 - 5.80 x10E6/uL [facility] - 01 Hgb 12.0(L) 13.0 - 17.7 g/dL [facility] - 01 Hct 35.2(L) 37.5 - 51.0 % [facility] - 01 MCV 93 79 - 97 fL [facility] - 01 MCH 31.6 26.6 - 33.0 pg [facility] - 01 MCHC 34.1 31.5 - 35.7 g/dL [facility] - 01 Rdw 14.1 11.6 - 15.4 % [facility] - 01 Platelets 270 150 - 450 x10E3/uL [facility] - 01 03/12/2025 3:20 PM CDT 03/12/2025 Narrative [facility] - 03/13/2025 7:09 AM CDT Performed at: [place] [id number] Shadow Graph Weight Operator: Walt Solitario PhD, Phone: [phone] us Sarah Mendieta MD LAB BLOOD ORDERABLES Final Result [facility] - * Comprehensive metabolic panel (03/12/2025 3:20 PM CDT) [facility] Glucose 82 70 - 99 mg/dL [facility] - 01 BUN 15 6 - 24 mg/dL [facility] - 01 Creatinine, Serum 0.98 0.76 - 1.27 mg/dL [facility] - 01 eGFR 95 >59 mL/min/1.73 [facility] - 01 BUN/creat ratio 15 9 - 20 [facility] - 01 Sodium 139 134 - 144 mmol/L [facility] - 01 Potassium, sr 4.5 3.5 - 5.2 mmol/L [facility] - 01 Chloride 101 96 - 106 mmol/L [facility] - 01 CO2 23 20 - 29 mmol/L [facility] - 01 Calcium 9.8 8.7 - 10.2 mg/dL [facility] - 01 Protein, sr 7.4 6.0 - 8.5 g/dL [facility] - 01 Albumin 4.4 4.1 - 5.1 g/dL [facility] - 01 Globulin, Total 3.0 1.5 - 4.5 g/dL [facility] - 01 Bilirubin, Total 0.2 0.0 - 1.2 mg/dL [facility] - 01 Alk phos 77 44 - 121 IU/L [facility] - 01 AST 25 0 - 40 IU/L [facility] - 01 ALT 20 0 - 44 IU/L [facility] - 01 Blood 03/12/2025 3:20 PM CDT 03/12/2025 Narrative [facility] - 03/13/2025 11:11 AM CDT Performed at: [address] [id number] Shadow Graph Weight Operator: Walt Solitario PhD, Phone: [phone] Specimen Comment: A courtesy copy of this report has been sent to [phone] us Sarah Mendieta MD LAB BLOOD ORDERABLES Final Result [facility] - 01 from Last 3 Months Insurance [employer] OOS [facility] [employer] OOS Member Subscriber Plan / Payer (Ef fective 2020-Present) Name:Crow Herman Relation to Subscriber:Self Name:Crow Herman Payer ID:[id number] (NAIC) Type:[facility] Address: [address] [employer] Care Teams Oil Distributor Relationship Specialty Start Date End Date Yared Gustafson DO PCP - General Internal Medicine 02/01/18
--- OUTSIDE RECORDS SUMMARY | 2025-05-26 13:41 | XMS_ITS | Clinical Summary ---
Author Organization [facility] Address [address] [place] [address] Care Team Providers Care Squadron Worker Name Role Phone Yared Gustafson DO Primary Care Provider Allergies Active Allergy Reactions Criticality Noted Date Comments Latex Other (See Comments) 09/18/2009 Shellfish Derived Other (See Comments) 12/05/19 24 Tree Nuts Other (See Comments) 12/05/2023 Medications [...] bedtime. Active fluticasone propionate (FLONASE) 50 mcg/spray [place], Suspension nasal inhaler Administer 2 Sprays in each nostril daily. Active methylPREDNISol one (MEDROL DOSPACK) 4 mg Tablets, Dose Pack follow package directions 2 Active cyanocobalamin 1,000 mcg Tablet Take 1,000 mcg by mouth daily. Active Active Problems No known active problems Encounters Date Type Department Care Team Description 03/17/2025 External Device Data STL ABSTRACTION Provider, Abstract 03/04/2025 External Device Data STL ABSTRACTION Provider, Abstract 03/03/2025 External Device Data STL ABSTRACTION Provider, Abstract [...] Sign Reading Time Taken Comments Blood Pressure 151/92 11/24/2024 11:39 AM SEAM STAYER Pulse 84 11/24/2024 11:30 AM SEAM STAYER Temperature 35.9 C (96.7 F) 11/24/2024 11:30 AM SEAM STAYER Respiratory Rate 16 11/24/2024 11:3 0 AM SEAM STAYER Oxygen Saturation 98% 11/24/2024 11: 30 AM SEAM STAYER Inhaled Oxygen Concentration - - Weight 101.3 kg (223 lb 6.4 oz) 025 11:30 AM SEAM STAYER Height 180.3 cm (5' 11) 12/05/2023 1:32 PM SEAM STAYER Body Mass Index 31.16 12/05/2023 1:32 PM SEAM STAYER Plan of Treatment Upcoming Encounters Date Type Department Care Team (Late st Contact Info) Description 05/28/2025 2:45 PM CDT Office Visit [facility] Oncology and Hematology - [place] [address] [facility] [address] [place] [address] Flip Hart MD [address] [facility] [address] [place] [address] Health Maintenance Due Date Last Done Comments Pre-Diabetes and Diabetes Screening 1975 HEPATITIS B VACCINES (1 of 3 - 19+ 3-dose series) 1994 COLORECTAL SCREENING 2020 Colorectal Cancer Screening 2020 FIT-DNA Q 3 years 2020 FIT/FOBT Q 1 year 2020 Flex Sig/CT Colonography Q 5 years 2020 COVID-19 Vaccine ( season) 2024 08/13/2021, 01/30/2021, 01/09/2021 INFLUENZA VACCINE (#1) 2025 08/03/2022 DTAP/TDAP/TD VACCINES (3 - T d or Tdap) 06/21/2027 06/21/2017, 10/15/2005 Insurance [facility] [id number] Care Teams Squadron Worker Relationship Specialty Start Date End Date Yared Gustafson DO [address] [facility] [address] [place] [address] PCP - General Internal Medicine 12/04/23
[2025-05-26 13:44] LABS: Hematocrit 37.3 % (42.0-52.0); Hemoglobin 12.5 g/dL (14.0-18.0); Immature Granulocyte Percent A 0.2 % (0-0.5); Lymphocytes Absolute Auto 0.84 K/mm3 (0.9-3.2); Mean Corpuscular HGB Conc 33.5 g/dl (32-36); Mean Corpuscular Hemoglobin 31.7 pg (26-34); Mean Corpuscular Volume 94.7 fl (80-100); Nucleated Red Blood Cells Absolute Auto 0.000 K/mm3 (0.0-0.012); Nucleated Red Blood Cells Perc 0.0 % (0.0-0.2); Platelet Count Result 254 k/mm3 (150-375); Red Blood Count 3.94 M/mm3 (4.6-6.20); White Blood Count 4.9 K/mm3 (4.5-10.0)
[2025-05-26 16:25] LABS: Anion Gap 9 mmol/L (4-12); Blood Urea Nitrogen 13 mg/dL (9-20); Calcium 9.5 mg/dL (8.4-10.2); Carbon Dioxide 27 mmol/L (22-30); Chloride 102 mmol/L (98-107); Estimated Glomerular Filt Rate > 60; Glucose 89 mg/dL (65-110); Potassium 4.3 mmol/L (3.4-5.0); Sodium 138 mmol/L (137-145)
[2025-05-26 16:29] LABS: Iron 89 ug/dL (49-181)
[2025-05-26 16:39] LABS: Percent Iron Saturation 29 % (20-50)
[2025-05-26 17:10] LABS: Ferritin 78.90 ng/mL (17.9-464)
[2025-05-26 17:37] LABS: Vitamin B12 926.0 pg/mL (239-931)
== END 2025-05-26 13:25 | disposition home or self-care (01) ==
LOC: ANHLAB 13:24
PROVIDERS: Visit Provider Internal Medicine Hematology & Oncology
DX: D64.9 Anemia, unspecified (principal)
CPT/HCPCS: 36415; 80048; 82607; 82728; 82746; 83540; 83550; 85025

== ENCOUNTER 2025-09-15 14:34 | Outpatient (CLI) | payer OTHER, SELFPAY ==
--- NOTE | 2025-09-15 14:56 | ECHO_ITS ---
Patient Info Name: Crow Herman Age: 49 years : 1975 Gender: Male Ht: 71 in Wt: 226 lbs BSA: 2.29 m2 HR: 68 bpm BP: 152 / 97 mmHg Technical Quality: Good Exam Date: 09/15/2025 2:59 PM Patient Status: O Admit Date: 09/15/2025 Exam Type: CA echo doppler color flow Complete two-dimensional, color flow and Doppler transthoracic echocardiogram is performed. Hand Coper: Alex Moreira III Attending Provider: Lani Lomeli [facility] Summary 1. Complete two-dimensional, color flow and Doppler transthoracic echocardiogram is performed. 2. Left ventricular chamber dimension is normal. 3. Left ventricular systolic function is preserved, estimated at 50-55. 4. The left ventricular diastolic function is normal. 5. E/e' 5 is not elevated. 6. There is trace mitral valve regurgitation. Left Ventricle E/e' 5 is not elevated. Left ventricular chamber dimension is normal. Left ventricular systolic function is preserved, estimated at 50-55. The left ventricular diastolic function is normal. Right Ventricle Right ventricular chamber dimension is normal. Right ventricular systolic function is normal. Left Atria Left atrial chamber dimension is normal. Right Atria Right atrial chamber dimension is normal. Aortic Valve The aortic valve is trileaflet. There is no aortic valve stenosis. There is no aortic valve regurgitation. Pulmonic Valve There is no pulmonic regurgitation. Mitral Valve There is no mitral valve stenosis. There is trace mitral valve regurgitation. Tricuspid Valve There is no tricuspid valve regurgitation. Pericardium/Pleural There is no pericardial effusion. Inferior Vena Cava Normal inferior vena cava with >50% collapse upon inspiration consistent with normal right atrial pressure, 5 mmHg. Aorta The aortic root size at the sinus of Valsalva is normal. Left Ventricular Outflow Tract Name Value Normal LVOT 2D LVOT Diameter 2.5 cm LVOT Doppler LVOT Peak Velocity 92 cm/s LVOT Peak Gradient 3 mmHg LVOT Mean Gradient 2 mmHg LVOT VTI 21 cm LVOT VTI/AV VTI Ratio 0.9 LVOT Stroke Volume 99 ml LVOT CO 6.4 l/min LVOT CI 2.8 l/min/m2 Pulmonic Valve Name Value Normal PV Doppler PV Peak Velocity 115 cm/s PV Peak Gradient 5 mmHg PV Mean Gradient 3 mmHg Mitral Valve Name Value Normal MV Doppler MV Peak Gradient 2 mmHg MV Mean Gradient 1 mmHg MV Area (Cont Eq VTI) 4.4 cm2 MV Diastolic Function MV E Peak Velocity 76 cm/s MV A Peak Velocity 49 cm/s MV E/A 1.6 MV Decel Time (PW) 166 ms MV Annular TDI MV E/e' (Septal) 7.0 MV E/e' (Lateral) 5.0 MV E/e' (Average) 6.0 Tricuspid Valve Name Value Normal Estimated PAP/RSVP RA Pressure 5 mmHg <=5 TV Annular TDI TV Lateral Tiarra s' Velocity 14.2 cm/s >=9.5 Aortic Valve Name Value Normal AV Doppler AV Peak Velocity 110 cm/s AV Peak Gradient 5 mmHg AV Mean Gradient 2 mmHg AV VTI 22 cm AV Area (Cont Eq VTI) 4.5 cm2 >=3.0 AV Area (Cont Eq Bud) 4.0 cm2 AV DI (Bud) 0.84 AV Regurgitation 2D LVOT Area 4.8 cm2 Ventricles Name Value Normal LV Dimensions 2D/MM IVS Diastolic Thickness (2D) 0.9 cm 0.6-1.0 LVID Diastole (2D) 5.3 cm 4.2-5.8 LVIW Diastolic Thickness (2D) 1.0 cm 0.6-1.0 LVID Systole (2D) 3.8 cm 2.5-4.0 LVOT Diameter 2.5 cm LV Mass (2D Cubed) 186.23 g 88.00-224.00 LV Mass Index (2D Cubed) 81 g/m2 49-115 Relative Wall Thickness (2D) 0.39 <=0.42 LV Fractional Shortening/Ejection Fraction 2D/MM LV Fractional Shortening (2D) 27 % 25-43 LV EF (2D Teichholz) 53 % LV Diastolic Volume (4C MOD) 88 ml LV EF (4C MOD) 53 % LV Diastolic Volume (2C MOD) 62 ml LV EF (2C MOD) 46 % LV Diastolic Volume (BP MOD) 78 ml 62-150 LV Diastolic Volume Index (BP MOD) 34 ml/m2 34-74 LV Systolic Volume (BP MOD) 41 ml 21-61 LV Systolic Volume Index (BP MOD) 18 ml/m2 11-31 LV EF (BP MOD) 47 % 52-72 LV Diastolic Length (4C) 8.1 cm LV Systolic Length (4C) 6.6 cm LV Stroke Volume (4C MOD) 46 ml Atria Name Value Normal LA Dimensions LA Volume (4C A-L) 46 ml LA Volume (BP A-L) 49 ml RA Dimensions RA Systolic Major [place] Length (4C) 5.2 cm 2.1-2.7 RA Area (4C) 13.9 cm2 <=18.0 Report Signatures
--- OUTSIDE RECORDS SUMMARY | 2025-09-15 16:04 | XMS_ITS | Clinical Summary ---
Author Organization [facility] Address [address] [place] [address] Care Team Providers Care Tinware Lithograph Press Operator Name Role Phone AishaYared chairez Jan Primary Care Provider Allergies Active Allergy Reactions [...] bedtime. Active fluticasone propionate (FLONASE) 50 mcg/spray [place], Suspension nasal inhaler Administer 2 Sprays in each nostril daily. Active methylPREDNISol one (MEDROL DOSPACK) 4 mg Tablets, Dose Pack follow package directions 2 Active cyanocobalamin 1,000 mcg Tablet Take 1,000 mcg by mouth daily. Active Active Problems No known active problems Family History Medical History Relation Name Comments [...] Sign Reading Time Taken Comments Blood Pressure 126/84 05/28/2025 2:33 PM CDT Pulse 83 05/28/2025 2:31 PM CDT Temperature 36.1 C (96.9 F) 05/28/2025 2:31 PM CDT Respiratory Rate 15 05/28/2025 2:31 PM CDT Oxygen Saturation 97% 05/28/2025 2:31 PM CDT Inhaled Oxygen Concentration - - Weight 101.2 kg (223 lb) 05/28/2025 2:31 PM CDT Height 180.3 cm (5' 11) 12/05/2023 1:32 PM PAROLE OFFICER Body Mass Index 31.1 12/05/2023 1:32 PM PAROLE OFFICER Plan of Treatment Upcoming Encounters Date Type Department Care Team (Late st Contact Info) Description 05/28/2026 9:00 AM CDT Office Visit [facility] Oncology and Hematology - [place] [address] [facility] [address] [place] [address] Flip Hart MD [address] [facility] [address] [place] [address] Health Maintenance Due Date Last Done Comments Pre-Diabetes and Diabetes Screening 1975 HEPATITIS B VACCINES (1 of 3 - 19+ 3-dose series) 1994 COLORECTAL SCREENING 2020 Colorectal Cancer Screening 2020 FIT-DNA Q 3 years 2020 FIT/FOBT Q 1 year 2020 Flex Sig/CT Colonography Q 5 years 2020 INFLUENZA VACCINE (#1) 2025 08/03/2022 COVID-19 Vaccine ( - season) 2025 08/13/2021, 01/30/2021, 01/09/2021 DTAP/TDAP/TD VACCINES (3 - T d or Tdap) 06/21/2027 06/21/2017, 10/15/2005 Insurance [facility] Care Teams Tinware Lithograph Press Operator Relationship Specialty Start Date End Date Yared Gustafson DO [address] [address] PCP - General Internal Medicine 12/04/23
--- OUTSIDE RECORDS SUMMARY | 2025-09-15 16:04 | XMS_ITS | Encounter Summary ---
Author Organization [facility] Address [address] [place] [address] Phone Care Team Providers Care Operations Intern Name Role Phone Yared Gustafson DO Primary Care Provider [phone]- [phone] Encounter Details Date Type Department Care Team (Late st Contact Info) Description 02/01/2018 Orders Only [facility] ProviderNaz MD [address] [id number] Social History Tobacco Use Types Packs/Day Years Used Date Smoking Tobacco: Never Smokeless Tobacco: Never Alcohol Use Standard Drinks/Week Comments Yes 0 (1 standard drink = 0.6 oz pur e alcohol) Sex and Gender Information Value Date Recorded Sex Assigned at Not on file Legal Sex Male 10:59 AM UNIT AIDE Gender Identity Male 02/05/2020 11:29 AM CDT Sexual Orientation Straight 08/19/2020 8: 45 AM UNIT AIDE documented as of this encounter Functional Status * BP Location Answer Date of Assessment Author Left arm 02/01/2018 4:08 PM CDT Minerva Krueger LPN * BP Location Answer Date of Assessment Author Left arm 02/01/2018 4:08 PM CDT Minerva Krueger LPN documented as of this encounter Plan of Treatment Not on file documented as of this encounter Procedures Procedure Name Priority Date/Time Associated Diagnosis Comments DISCHARGE LABORATORY CUMULATIVE REPORT 02/01/2018 12:00 AM CDT documented in this encounter Results * DISCHARGE LABORATORY CUMULATIVE REPORT (02/01/2018 12:00 AM CDT) Narrative 02/01/2018 12:00 AM CDT Ordered by an unspecified provider. us Historical Provider LAB BLOOD ORDERABLES Eden l Result documented in this encounter Visit Diagnoses Not on filedocumented in this encounter Care Teams Operations Intern Relationship Specialty Start Date End Date Yared Gustafson DO PCP - General Internal Medicine 02/01/18 documented as of this encounter
--- OUTSIDE RECORDS SUMMARY | 2025-09-15 16:04 | XMS_ITS | Clinical Summary ---
Author Organization [facility] Address [address] [place] [address] Care Team Providers Care Director Religious Education Name Role Phone Yared Gustafson DO Primary Care Provider [phone]- [phone] Allergies Active Allergy Reactions Criticality Noted Date [...] 11/16/2021 Assessment & Plan (11/16/2021 12:48 PM BIN OPERATOR): Long-term use of high-risk medication requiring regular monitoring. Labs ordered, no s/s of med tox or infection. Encouraged to work with PCP to make sure all recommended cancer screens and vaccinations are complete. Avoid live-vaccines unless reviewed with noxious weeds and pest inspector first. He will have his yearly eye [...] 11/16/2021 Assessment & Plan (11/16/2021 12:58 PM BIN OPERATOR): Encourage central and extremity warming techniques. May consider amlodipine in the future. Drug indicated 07/22/2015 Overview (01/20/2017): Encounter for long-term (current) use of high-risk medication Asthma 12/24/2012 Overview (01/19/2017): Asthma Seasonal allergic rhinitis 12/24/2012 Overview (01/19/2017): Seasonal allergies Rheumatoid arthritis 12/24/2012 Overview (01/19/2017): Rheumatoid arthritis Assessment & Plan (11/16/2021 12:48 PM BIN OPERATOR): Stable on HCQ 200 mg daily and MTX 6 tabs weekly. Supplements on folic acid 2 grams daily. Labs due and patient will have drawn sometime within the next 1-2 weeks, continue to monitor. Immunizations Immunization Administration Dates Next Due DTaP [...] on file Legal Sex Male 10:59 AM BIN OPERATOR Gender Identity Male 02/05/2020 11:29 AM CDT Sexual Orientation Straight 08/19/2020 8: 45 AM BIN OPERATOR Last Filed Vital Signs Vital Sign Reading [...] Screening 02/01/2020 01/31/2019 Covid-19 Vaccine (5 - 2024-2 6 season) 2025 07/13/2023, 08/13/2021, 01/30/2021, Additional history exists Influenza Vaccine (#1) 2025 , 08/10/2022, 08/03/2022, Additional history exists DTaP/Tdap/Td Vaccine (4 - Td or Tdap) 07/01/2032 07/01/2022, 06/21/2017, 10/15/2005 Insurance [employer] [facility] [employer] BLUE ACCESS OOS Member Subscriber Plan / Payer (Ef fective 2020-Present) Name:Crow Herman Relation to Subscriber:Self Name:Crow Herman Payer ID:[id number] (NAIC) Type:[facility] Address: [address] [place] Care Teams Director Religious Education Relationship Specialty Start Date End Date Yared Gustafson DO PCP - General Internal Medicine 02/01/18
--- OUTSIDE RECORDS SUMMARY | 2025-09-15 16:04 | XMS_ITS | Clinical Summary ---
Author Organization [facility] Address [address] [place] [address] Care Team Providers Care Relay Shop Tester Name Role Phone Anthony Mora MD Primary Care Provider [phone] Nell Quiroz MD Unavailable Unavailable Source Comments [facility],non-owned Affiliates and Associated Physician Practices is amultiple site organization consisting of ambulatory clinics and hospital sitesin [place], [place], [place] and [place]. This disclosure is being madepursuant to the Care Everywhere program and may not contain all information available regarding this patient. 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 Not on file Not [...] 12/10/2019 12/10/2014, 11/16, 04/04/2013, Additional history exists DEPRESSION SCREENING 10/15/2024 COVID-19 VACCINE ( season) 2025 INFLUENZA VACCINE (#1) 2025 ZOSTER VACCINE (1 [...] W LDL/HDL RATIO Routine 12/10/2014 10:12 AM FARM EQUIPMENT TECHNICIAN Annual physical exam HIV 1/0/2 ANTIBODIES W CONFIRM Routine 12/27/2009 8:16 AM CDT Myalgia and Myositis from Last 3 Months or Most Recently Relevant to Health Maintenance Results * LIPID PROFILE W LDL/HDL (PO REF LAB) (12/10/2014 10:12 AM FARM EQUIPMENT TECHNICIAN) Cholesterol 151 100 - 199 mg/dL [facility] [...] BLOOD SPECIMEN / Unknown 12/10/2014 10:12 AM FARM EQUIPMENT TECHNICIAN 12/10/2014 12:55 PM FARM EQUIPMENT TECHNICIAN Narrative Resulting Agency Comment [facility] [address] [facility] [phone] [place] Anthony Mora MD LAB - CHEMISTRY ORDERABLE S Final Result [facility] ACCOUNT BILL [address] [place] [address] * HIV 1/0/2 ANTIBODIES W CONFIRM (PO REF LAB) (12/27/2009 8:16 AM CDT) HIV-1 Antibody O.D. Ratio <1.00 <1.00 [facility] ACCOUNT BILL Comment:Index Value: Specime n reactivity relative to the negative cutoff. HIV-1/HIV-2 Non Reactive Non Reactive [facility] ACCOUNT BILL BLOOD SPECIMEN / Unknown 12/27/2009 8:16 AM CDT 12/27/2009 5:32 PM CDT Narrative Resulting Agency Comment [facility] [address] [facility] [phone] [place] Anthony Mora MD LAB - MICROBIOLOGY ORDERA BLES Final Result [facility] ACCOUNT BILL [address] [place] [address] from Last 3 Months or Most Recently Relevant to Health Maintenance Insurance Care Teams Relay Shop Tester Relationship Specialty Start Date End Date Anthony Mora MD [address] [address] PCP - General 09/18/09 Nell Quiroz MD [address] [address] Rheumatology 12/11/13
== END 2025-09-15 14:35 | disposition home or self-care (01) ==
LOC: ANHCARD 14:41
PROVIDERS: PCP Clinical Nurse Specialist; Visit Provider Clinical Nurse Specialist
DX: R06.02 Shortness of breath (principal); R00.1 Bradycardia, unspecified
CPT/HCPCS: 93242; 93306